=== PATIENT | female | born 1950 | race Caucasian/White ===

== ENCOUNTER 2017-12-08 05:42 | Outpatient (CLI) | payer MEDICARE, BC ==
[~2017-12-08] VITALS: Ht 152.4 cm; Wt 74.8 kg
[~2017-12-08 05:42] MED LIST: ASPI1TAB71 PO; BISO1TAB63 PO; CALC-17 PO; ESTR1TAB24 PO; FLUC200T5 PO; FLUO20CA42 PO; IBUP-1773 PO; IBUP200C92 PO; INSU200I SQ; INSU200I4 SQ; LORA10TA7 PO; LYSI500T13 PO; MEDR5TAB4 PO; NYST15CR TP; OLAN5TAB25 PO; PENI250T2 PO; POTA10CA43 PO; SITA100T PO; VILA40TA PO; [UNRECOGNIZED DRUG - OTHER] PO
[2017-12-08] MEDS ORDERED: VILA40TA PO (11:28)
[2017-12-08] MEDS ORDERED: INSU100I32 SQ (11:28)
[2017-12-08] MEDS ORDERED: DONE5TAB30 PO (11:28)
[2017-12-08] MEDS ORDERED: LAMO100T PO (11:28)
[2017-12-08] MEDS ORDERED: MULT-35 PO (11:28)
[2017-12-08] MEDS ORDERED: INSU100V16 SQ (11:28)
[2017-12-08] MEDS ORDERED: METF500T4 PO (11:28)
[2017-12-08] MEDS ORDERED: ESZO3TAB38 PO (11:29)
== END 2017-12-08 11:33 ==
LOC: PREOP 05:42
PROVIDERS: ATTEND Surgery
DX: Z01.818 Encounter for other preprocedural examination (principal); R19.8 Other specified symptoms and signs involving the digestive system and abdomen

== ENCOUNTER 2017-12-15 08:48 | Day surgery (SDC) | payer MEDICARE ==
[~2017-12-15] VITALS: Ht 152.4 cm; Wt 74.8 kg
[~2017-12-15 08:48] MED LIST changes: +DONE5TAB30 PO; +ESZO3TAB38 PO; +INSU100I32 SQ; +INSU100V16 SQ; +LAMO100T PO; +METF500T4 PO; +MULT-35 PO
[2017-12-15] MEDS ORDERED: NS IV 500 ML 500 ML ONE (08:55)
[2017-12-15] MEDS ORDERED: NS IV 500 ML 500 ML IV ONE (09:00)
[2017-12-15] MEDS ORDERED: fentaNYL INJECTION 100 MCG/2 ML AMP IVP PRN (09:00)
[2017-12-15 09:05] VITALS: BP 173/91
--- NOTE | 2017-12-15 10:31 | History & Physicial ---
History of Present Illness History of Present Illness Reason for visit/HPI to undergo colonoscopy in view of a positive Cologuard test Date of Admission 12/15/17 Date Seen by Provider: Dec 15, 2017 Time Seen by Provider: 10:29 I consulted on this patient on 12/15/17 10:28 Attending Physician Dipesh Baez MD Admitting Physician Stephanie Acosta DO Consult Allergies and Home Medications Allergies Coded Allergies: No Known Drug Allergies (Unverified , 12/08/17) Home Medications Donepezil HCl 5 Mg Tablet, 5 MG PO DAILY, (Reported) Eszopiclone 3 Mg Tablet, 3 MG PO HS, (Reported) Insulin Aspart 100 Unit/1 Ml Susp, 1,000 UNIT SQ SSI, (Reported) Insulin Degludec 100 Unit/1 Ml Insuln.pen, 20 UNIT SQ DAILY, (Reported) Lamotrigine 100 Mg Tablet, 100 MG PO BID, (Reported) Metformin HCl 500 Mg Tablet, 500 MG PO DAILY, (Reported) Multivitamin 1 Each Tablet, 1 EACH PO DAILY, (Reported) Vilazodone Hydrochloride 40 Mg Tablet, 40 MG PO DAILY, (Reported) Patient Home Medication List Home Medication List Reviewed: Yes Past Lenqxhv-Qxzjvs-Uelcmt Hx Patient Social History Marrital Status: Employed/Student: unemployed Alcohol Use: Denies Use Recreational Drug Use: No Smoking Status: Never a Smoker Recent Foreign Travel: No Contact w/other who traveled: No Recent Hopitalizations: No Recent Infectious Disease Expo: No Immunizations Up To Date Date of Influenza Vaccine: Jun 30, 2017 Seasonal Allergies Seasonal Allergies: No Surgeries Yes Eye Surgery, Orthopedic Respiratory No Currently Using CPAP: No Currently Using BIPAP: No Neurological Yes Dementia Reproductive System Hx Reproductive Disorders: No Sexually Transmitted Disease: No HIV/AIDS: No Female Reproductive Disorders: Denies Genitourinary UTI-Chronic Gastrointestinal No Endocrine Endocrine Disorders: Diabetes, Non-Insulin dep HEENT History of HEENT Disorders: Yes HEENT Disorders: Cataract Loss of Vision: Bilateral Hearing Impairment: Hard of Hearing, Bilateral Hearing Aide Psychosocial History of Psychiatric Problem: Yes Behavioral Health Disorders: Anxiety, Depression Integumentary Skin/Integumentary Disorders: Recent Skin Changes Blood Transfusions Adverse Reaction to a Blood Tr: No (N/A) Family Medical History Family Hx: Arthritis 19 MOTHER BREAST CA GRANDMOTHER BREAST CA GRANDMOTHER Diabetes mellitus 19 FATHER Parkinson's disease 19 MOTHER Constitutional: no symptoms reported EENTM: no symptoms reported Respiratory: no symptoms reported Cardiovascular: no symptoms reported Gastrointestinal: no symptoms reported Genitourinary: no symptoms reported Musculoskeletal: no symptoms reported Skin: no symptoms reported Psychiatric/Neurological: Anxiety Physical Exam Vital Signs Vital Signs - First Documented 12/15/17 09:05 Temp 98.2 Pulse 103 Resp 20 B/P (MAP) 173/91 (118) Pulse Ox 96 O2 Delivery Room Air Capillary Refill : General Appearance: No Apparent Distress Respiratory: Lungs Clear Cardiovascular: Regular Rate, Rhythm Gastrointestinal: Non Tender, Soft Rectal: Deferred Extremity: Normal Inspection Neurologic/Psychiatric: Alert, Oriented x3 Skin: Warm/Dry Assessment/Plan Assessment and Plan lady with a positive cologuard test. For colonoscopy Problems: Admission Diagnosis Admission Status: Other (Outpt Proc) DIPESH BAEZ MD Dec 15, 2017 10:31 am
--- NOTE | 2017-12-15 10:31 | Conscious Sedation/ASA ---
Conscious Sedation Pre-Proced Time Reviewed: 10:31 ASA Class: 2 Airway Mallampati Classification: ([place] appropriate class) I. II. III, IV Lungs Heart ASA score ASA 1: a normal healthy patient ASA 2: a patient with a mild systemic disease (mid diabetes, controlled hypertension, obesity ASA 3: a patient with a severe systemic disease that limits activity (angina , COPD, prior Myocardial infarction) ASA 4: a patient with an incapacitating disease that is a constant threat to life (CHF, renal failure) ASA 5: a moribund patient not expected to survive 24 hrs. (ruptured aneurysm) ASA 6: a declared brain patient whose organs are being harvested. For emergent operations, add the letter E after the classification Grade 2 Sedation Plan: Discussed options with patient/fam Note The patient is an appropriate candidate to undergo the planned procedure, sedation, and anesthesia. The patient immediately re-assessed prior to indication. DIPESH BAEZ MD Dec 15, 2017 10:31 am
[2017-12-15] MEDS ORDERED: MIDAZOLAM 2 MG/2 ML (VERSED) VIAL ONE ×3 (10:49)
[2017-12-15] MEDS ORDERED: fentaNYL INJECTION 100 MCG/2 ML AMP ONE (10:50)
[2017-12-15] MEDS: MIDAZOLAM 2 MG/2 ML (VERSED) VIAL IVP PRN ×2 (11:05→11:10)
[2017-12-15 11:45] VITALS: BP 131/70
--- NOTE | 2017-12-15 11:47 | Endo Procedure Record ---
Endo Procedure Report Date of Procedure Last Colonoscopy: Yes (2001) Dec 15, 2017 Surgeon (s) DIPESH BAEZ MD Post Procedure/Op Diagnosis 2 polyps, 2 mm each, adjacent to each other at the cecum Procedure Performed Colonoscopy to cecum Snare polypectomy 2 Description of Procedure Anesthesia Type: Conscious Sedation Specimen(s) collected/removed cecal polyps Description of the Procedure Indication for the procedure: This lady came in for colonoscopy, based on a positive Cologuard test. Informed consent was obtained after reviewing the procedure in detail. Description of the procedure: She was placed in left lateral decubitus position and her vital signs were monitored sedation was achieved using Versed and fentanyl. Examination of the perianal area revealed external hemorrhoids and large skin tags. Digital examination was unremarkable. The colonoscope was then introduced into the rectum and advanced all the way up to the cecum. The scope was then withdrawn slowly and the mucosa examined in a systematic fashion. Findings: 1. Very few sigmoid diverticula 2. 2 polyps, 2 mm each, adjacent to each other, at the cecum. These were snared and retrieved. They were sent as one single specimen She tolerated the procedure well and was taken back to the nursing area in a stable condition. Impression: Positive Cologuard test. 2 small cecal polyp excised. Recommend repeating in 3 years. Copies To: LUANA ROB XAVIER M MD Dec 15, 2017 11:47 am
--- NOTE | 2017-12-15 11:48 | Discharge Inst-Simple/Standard ---
Discharge Inst-Standard Discharge Medications New, Converted or Re-Newed RX: Other Patient Instructions/Follow Up Plan of Care/Instructions/FU: Repeat colonoscopy in 3 years Activity as Tolerated: Yes Discharge Diet: ADA Diet DIPESH BAEZ MD Dec 15, 2017 11:48 am
[2017-12-15 12:10] VITALS: BP 133/77
[2017-12-15 12:15] VITALS: BP 133/77
== END 2017-12-15 12:30 | disposition home or self-care (01) ==
LOC: ENDO 08:48
PROVIDERS: ATTEND Surgery
DX: D12.0 Benign neoplasm of cecum (principal); K57.30 Diverticulosis of large intestine without perforation or abscess without bleeding; E11.9 Type 2 diabetes mellitus without complications; F32.9 Major depressive disorder, single episode, unspecified; F41.9 Anxiety disorder, unspecified; Z79.4 Long term (current) use of insulin; Z79.899 Other long term (current) drug therapy
CPT/HCPCS: 82962

== ENCOUNTER → 2018-06-11 | Outpatient (CLI) | payer MEDICARE ==
[~2018-06-11] MED LIST changes: -ESZO3TAB38 PO; +ESZO3TAB39 PO; +METF-397 PO; -METF500T4 PO
--- NOTE | 2018-06-12 19:54 | Diagnostic Imaging Report ---
EXAMINATION: Bilateral screening mammogram. INDICATION: Screening. The current study was also evaluated with a Computer Aided Detection (CAD) system. 3-D tomosynthesis was also performed and reviewed. COMPARISON: This study was compared to the prior exam of 06/15/2013. At this time, there are no current complaints. FINDINGS: The fibroglandular tissue in both breasts is heterogeneously dense. This does limit the sensitivity of this exam. In the five-year interval since the prior study, a few benign-appearing calcifications have developed in both breasts, particularly the left breast. There is no primary or secondary sign of malignancy noted, however. IMPRESSION: 1. There is no evidence of malignancy. 2. The patient should have her annual bilateral screening mammogram on schedule in May of 2019. ACR BI-RADS Category 1: Negative. Result letter will be mailed to the patient. Note: At least 10% of breast cancer is not imaged by mammography. Dictated by: Dictated on workstation # [id number]
== END ==
LOC: RAD 09:38
PROVIDERS: ATTEND Nurse Practitioner Community Health
DX: Z12.31 Encounter for screening mammogram for malignant neoplasm of breast (principal)
CPT/HCPCS: 77067

== ENCOUNTER 2019-05-29 07:50 | Emergency (ER) | payer MEDICARE ==
[~2019-05-29] VITALS: Ht 152.4 cm; Wt 78.1 kg
--- NOTE | 2019-05-29 08:14 | ED Lower Extremity ---
General Stated Complaint: FALL - R KNEE PAIN Source: patient (DIFFICULT HISTORIAN), spouse History of Present Illness Date Seen by Provider: May 29, 2019 Time Seen by Provider: 07:56 Initial Comments PT ARRIVES VIA POV, THEN NEEDS WHEELCHAIR INTO ER PT STATES SHE TRIPPED AND FELL SHE WAS GOING DOWN STEPS AT FOOTBALL GAME LAST NIGHT, AND LANDED ON RIGHT KNEE ON CONCRETE STEP STATES "SHE DIDN'T GO DOWN ON IT REAL HARD OR REAL FAST" AND PT HAS BEEN ABLE TO WALK ON IT C/O CONTINUED PAIN TO KNEE TODAY NO PRIOR INJURIES OR PROBLEMS OR SURGERIES ON THIS KNEE TOOK 1 ANACIN JUST PRIOR TO ARRIVAL, OTHERWISE HAS NOT TAKEN ANYTHING FOR IT, NOR APPLIED ICE, ETC. NO OTHER INJURIES PCP: [facility] Allergies and Home Medications Allergies Coded Allergies: No Known Drug Allergies (Unverified , 12/08/17) Home Medications Donepezil HCl 5 Mg Tablet, 5 MG PO DAILY, (Reported) Eszopiclone 3 Mg Tablet, 3 MG PO HS, (Reported) Insulin Aspart 100 Unit/1 Ml Susp, 1,000 UNIT SQ SSI, (Reported) Insulin Degludec 100 Unit/1 Ml Insuln.pen, 20 UNIT SQ DAILY, (Reported) Lamotrigine 100 Mg Tablet, 100 MG PO BID, (Reported) Metformin HCl 500 Mg Tablet, 500 MG PO DAILY, (Reported) Multivitamin 1 Each Tablet, 1 EACH PO DAILY, (Reported) Vilazodone Hydrochloride 40 Mg Tablet, 40 MG PO DAILY, (Reported) Review of Systems Constitutional: no symptoms reported Musculoskeletal: see HPI Skin: no symptoms reported Psychiatric/Neurological: No Symptoms Reported Past Wwhewym-Fszgwq-Ybuqgy Hx Patient Social History Recent Foreign Travel: No Contact w/Someone Who Travel: No Recent Hopitalizations: No Immunizations Up To Date Date of Influenza Vaccine: Jun 30, 2017 Seasonal Allergies Seasonal Allergies: No Past Medical History Surgeries: Yes (CATARACTS) Eye Surgery, Orthopedic Respiratory: Yes Pneumonia Currently Using CPAP: No Currently Using BIPAP: No Cardiac: Yes Hypertension Neurological: Yes Dementia Reproductive Disorders: No Female Reproductive Disorders: Denies Sexually Transmitted Disease: No HIV/AIDS: No Genitourinary: Yes UTI-Chronic Gastrointestinal: No Musculoskeletal: Yes Arthritis Endocrine: Yes Diabetes, Insulin dep HEENT: Yes Cataract Loss of Vision: Bilateral Hearing Impairment: Hard of Hearing, Bilateral Hearing Aide Psychosocial: Yes Anxiety, Depression Recent Skin Changes Adverse Reaction/Blood Tranf: No (N/A) Family Medical History Arthritis 19 MOTHER BREAST CA GRANDMOTHER BREAST CA GRANDMOTHER Diabetes mellitus 19 FATHER Parkinson's disease 19 MOTHER Physical Exam Vital Signs Vital Signs - First Documented 05/29/19 07:57 Temp 37.1 Pulse 100 Resp 18 B/P (MAP) 164/98 (120) Pulse Ox 96 Capillary Refill : Height, Weight, BMI Height: 5'0.00" Weight: 165lbs. 0.0oz. [id number]; 32.2 BMI Method: General Appearance: WD/WN, no apparent distress, other (PT ABLE TO GET OUT OF WHEELCHAIR AND TRANSFER TO ER CART, VERY SLOWLY, WITH 1 PERSON ASSIST. ) Progress/Results/Core Measures Results/Orders My Orders Orders - REGI FALCON DO Knee, Right, 3 Views (05/29/19 08:03) Ct Extremity Lower Right Wo (05/29/19 09:01) Bg Bandage (05/29/19 10:00) Flexion Limit Knee (05/29/19 10:00) Hydrocodone/Apap 5/325 Tablet (Lortab 5 (05/29/19 10:00) Vital Signs/I&O 05/29/19 07:57 Temp 37.1 Pulse 100 Resp 18 B/P (MAP) 164/98 (120) Pulse Ox 96 Departure Impression Primary Impression: Fracture of right tibial plateau Disposition: 01 HOME, SELF-CARE Condition: Stable Departure-Patient Inst. Referrals: [facility] (PCP) Primary Care Physician JESSE THAKKAR (Family) Primary Care Physician KARI PERKINS MD Patient Instructions: Knee Immobilizer (DC), Tibial Plateau Fracture (DC) Add. Discharge Instructions: BG WRAP AND KNEE IMMOBILIZER AND WHEELCHAIR AT ALL TIMES NO WEIGHT BEARING ICE TO AREA AT 20 MINUTE INTERVALS FOLLOW UP WITH DR. PERKINS NEXT WEEK FOR FURTHER CARE Scripts Hydrocodone Bit/Acetaminophen (Hydrocodone/Acetaminophen 5/325mg Tablet) 1 Tab Tab 1 EACH PO Q4H PRN for PAIN-MODERATE MDD 10 for 3 Days, #20 TAB Prov: REGI FALCON DO 05/29/19 REGI FALCON DO May 29, 2019 08:14
--- NOTE | 2019-05-29 08:52 | Diagnostic Imaging Report ---
INDICATION: Knee pain after fall. COMPARISON: None available. TECHNIQUE: 3 views of the right knee were obtained. FINDINGS: There is an acute, mildly impacted fracture of the lateral tibial plateau. This involves the posterior one third to one half of the articular surface with the depression measuring approximately 4 mm. No split fracture to the metaphysis of the proximal tibia. No distal femoral fracture. Patella appears intact. Small knee joint effusion. IMPRESSION: Acute, mildly impacted lateral tibial plateau fracture. Dictated by: Dictated on workstation # [id number]
--- NOTE | 2019-05-29 09:30 | Diagnostic Imaging Report ---
PROCEDURE: CT right lower extremity without contrast. TECHNIQUE: Axially acquired CT was obtained through the right lower extremity without intravenous contrast. Coronal and sagittal reformations were also performed. Auto Exposure Controls were utilized during the CT exam to meet ALARA standards for radiation dose reduction. INDICATION: Right knee pain. Further evaluation of lateral tibial plateau fracture. COMPARISON: Radiographs from earlier same day. FINDINGS: There is an acute, minimally comminuted fracture involving the posterior one quarter of the lateral tibial plateau articular surface. There is approximately 3 mm of articular surface depression of the dominant fracture fragment. No fracture line extending into the metaphysis. No intercondylar fracture or fracture of the medial tibial plateau. Patella is intact. No fracture of the fibula. Distal femoral condyles are intact. Mild to moderate tricompartmental degenerative changes are most advanced in the lateral compartment. Small lipohemarthrosis compatible with intra-articular fracture. IMPRESSION: 1. Acute, minimally depressed fracture of the lateral tibial plateau (Schatzker type III). Dictated by: Dictated on workstation # [id number]
[2019-05-29] MEDS ORDERED: HYDROcodone/APAP 5 MG/325 MG (LORTAB) TAB PO ONE (10:00)
[2019-05-29] MEDS ORDERED: ACHD5005 PO (10:04)
[2019-05-29 10:17] VITALS: BP 151/82
== END 2019-05-29 10:17 | disposition home or self-care (01) ==
LOC: EDUNIT# 07:50 → ER 07:52
DX: S82.141A Displaced bicondylar fracture of right tibia, initial encounter for closed fracture (principal); I10 Essential (primary) hypertension; E11.9 Type 2 diabetes mellitus without complications; F03.90 Unspecified dementia, unspecified severity, without behavioral disturbance, psychotic disturbance, mood disturbance, and anxiety; F41.9 Anxiety disorder, unspecified; F32.9 Major depressive disorder, single episode, unspecified; Z87.440 Personal history of urinary (tract) infections; Z79.4 Long term (current) use of insulin; Z80.0 Family history of malignant neoplasm of digestive organs; W10.9XXA Fall (on) (from) unspecified stairs and steps, initial encounter
CPT/HCPCS: 73562; 73700

== ENCOUNTER 2020-01-20 03:02 | Emergency (ER) | payer MEDICARE ==
[~2020-01-20] VITALS: Ht 155 cm; Wt 77.2 kg
[~2020-01-20 03:02] MED LIST changes: +ACHD5005 PO; -LAMO100T PO; +LAMO100T5 PO
--- OUTSIDE RECORDS SUMMARY | 2020-01-20 03:10 | XMS REPORT ---
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 Name Role Phone NIHARIKA GORE Unavailable Unavailable BIJAN, JESSE Unavailable Unavailable ROSA MARIA BEJARANO Unavailable Unavailable MARIS MACHADO Unavailable Unavailable JULIUS EPSTEIN Unavailable JULIUS EPSTEIN Unavailable TAM SALAZAR Unavailable BIJAN, JESSE Unavailable TAM SALAZAR Unavailable BIJAN, JESSE Unavailable BIJAN, JESSE Unavailable TAM SALAZAR Unavailable TAM SALAZAR Unavailable KATIE, DAWNY Unavailable KATIE, DAWNY Unavailable KATIE, DAWNY Unavailable TAM SALAZAR Unavailable KATIE, DAWNY Unavailable KATIE, DAWNY Unavailable BIJAN, JESSE Unavailable BIJAN, JESSE Unavailable TAM SALAZAR Unavailable SEGUNDO WISDOM Unavailable SEGUNDO WISDOM Unavailable BIJAN, JESSE Unavailable KATIE, DAWNY Unavailable TAM SALAZAR Unavailable DENNIS Wilson Unavailable TAM SALAZAR ANN Unavailable KATIE, DAWNY Unavailable BIJAN, JESSE Unavailable TAM SALAZAR ANN Unavailable TAM SALAZAR ANN Unavailable TAM SALAZAR ANN Unavailable BIJAN, JESSE Unavailable KATIE, DAWNY Unavailable TAM SALAZAR ANN Unavailable KATIE, DAWNY Unavailable TAM SALAZAR ANN Unavailable KATIE, DAWNY Unavailable TAM SALAZAR ANN Unavailable BIJAN, JESSE Unavailable BIJAN, JESSE Unavailable TAM SALAZAR ANN Unavailable TAM SALAZAR ANN Unavailable KATIE, DAWNY Unavailable BIJAN, JESSE Unavailable BIJAN, JESSE Unavailable BIJAN, JESSE Unavailable MONTESINOS, KATHERINE Unavailable MONTESINOS, KATHERINE Unavailable BIJAN, JESSE Unavailable BIJAN, JESSE S Unavailable Unavailable [facility] PCP [phone] TERRIE DO, KATHERINE K Unavailable Unavailable Unavailable Unavailable Unavailable Unavailable Unavailable Unavailable Allergies The data below is from unstructured sources Substance Reaction Event Type N.K.D.A. Info Not Available Non Drug Allergy Allergen Type Severity Reaction Status Last Updated No Known Drug Allergies Active 10/12/14 No known allergies. Medications Current Medications Medication Ingredient Drug Dose Dates Status Sig Sig Care Class(es) (Normalized) (Original) Provid er atorvastati atorvastati HMG-CoA 40 mg 10-12-20 Active no At orvastatin no n 40 mg n Reductase 18 information Calcium 40 na me oral tablet Translation Inhibitor MG Orally (3 s: [ Once a day 1 sources.) Atorvastati tablet 24h n Calcium Jun, 40 MG] 90 days Active cholecalcif cholecalcif Vitamin D 199906-26-20 Active no Vitamin D3 no di 2000 di [IU] 18 information 2000 UNIT name unt oral Translation Orally Once capsule (3 s: [ a day 1 sources.) Vitamin D3 capsule 24h 2000 UNIT] Jun, 90 days Active no Glucocard no 07-08-20 Active no Glucocard no information Expression information 18 information Express ion name (2 Monitor Monitor sources.) w/Device w/Device as Translation directed 24 s: [ Jun, 2018 Glucocard Active Expression Monitor w/Device] no Glucocard no 07-08-20 Active no Glucocard no information Expression information 18 information Express ion name (2 Test - Test - In sources.) Translation Vitro 2 s: [ times a day Glucocard as directed Expression 12h Jun, Test -] 2017 Active raNITIdine raNITIdine Histamine-2 150 mg 07-08-20 Active no Ranitidine no 150 mg oral Translation Receptor 18 information HCl 150 M G name capsule (2 s: [ Antagonist Orally twice sources.) Ranitidine a day 1 HCl 150 MG] capsule 12h Jun, 30 day(s) Active no ReliOn no Active no ReliOn Prime no information Prime Test information information Test - In nam e (3 - Vitro 2 sources.) Translation times a day s: [ ReliOn test blood Prime Test sugar 12h 50 -] days Active Completed/Discontinued Medications Medication Ingredient Drug Dose Dates Status Sig Sig Care Class(es) (Normalized) (Original) Provid er {32 Acetaminoph Uncompetiti 01-31-20 Complete no Dm/Pe/Ac etam (no (Acetaminop en / ve 16 d information inophen/Doxy phone) hen 325 MG Dextrometho N-methyl-D- clarissa (Eq / rphan / aspartate Daytime-Nigh Dextrometho Doxylamine Receptor ttime rphan / Antagonist, Cold-Flu) 1 Hydrobromid Phenylephri Sigma-1 Each e 10 (1 ne Agonist, Cap.seq, 1 source.) alpha-1 Each Oral As Adrenergic Needed Agonist Discontinued no Acetaminoph Opioid 05-29-20 Complete take 1 Acetaminophe Katherine K information en / Agonist 19 - d tablet by n/Hydrocodon Terrie (1 source.) HYDROcodone 06-01-20 mouth every e Bitart (no 19 four hours (Hydrocodone phone) as needed /Acetaminoph for pain en 5/325MG Tablet) 1 Tab Tab 1 Each ORAL Every 4HRS as needed for Pain-Moderat e 3 Days 20 Tab 05/29/19 no Calcium/Mag no 01-31-20 Complete no Calcium/Magn (no information nesium/Zinc information 16 d information es ium/Zinc phone) (1 source.) (Calcium/Ma (Calcium/Mag gnesium/Zin nesium/Zinc c Tab) 1 Tab) 1 Each Each Tablet, 2 Tablet, 2 Each Oral Each Oral Daily Discontinued no Multivitami no Complete take 1 Multivitamin (n o information n (Daily information d tablet by (Daily phone) (1 source.) Multiple mouth once Multiple Vitamin) 1 daily, then Vitamin) 1 Each Tablet take 1 Each Tablet tablet by 1 Each ORAL mouth Daily Problems Active Problems Problem Normalized Date Last Normalized Normalized Provider Fa cility Classification Problem(s) Recorded Problem Problem Sta tus Duration Anxiety Anxiety Chronic Active KATHERINE FALCON , DO [facility] Via disorders (10 disorder, Madisyn sources.) unspecified Hospital [facility] (17782) Other and Benign Episodic Active DIPESH BAEZ Not Avai lable 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 (4 sources.) Disorders of Chronic Chronic Active KATHERINE [facility] teeth and jaw periodontitis, [address] [facility] (3 sources.) unspecified of [facility] Translations: [place] (31918) [ - Periodontitis K05.30] Disorders of Dental caries, Episodic Active KATHERINE MONTESINOS [facility] teeth and jaw unspecified [address] [facility] (3 sources.) Translations: of [facility] [ - Caries [place] (37709) K02.9] Diverticulosis Diverticulosis Chronic Active DIPESH MILAN S Not Available and of MD ever (22394) diverticulitis intestine (5 sources.) without perforation or abscess without bleeding Esophageal Gastro-esophag Chronic Active KATHERINE MONTESINOS Commun ity disorders (6 eal reflux [address] [facility] Center sources.) disease of [facility] without [place] (06747) esophagitis Translations: [ Gastroesophage al reflux disease without esophagitis, - Gastroesophage al reflux disease without esophagitis K21.9] Unclassified Long-term no information Active KATHERINE YAMEL [facility] (3 sources.) [place] [address] [facility] insulin of [facility] Translations: [place] (42059) [ [facility] current use of insulin] Other Other long Episodic Active DIPESH BAEZ Not Av ailable aftercare (5 term (current) , (38289) sources.) drug therapy Other Other Episodic Active no name Not Available gastrointestin specified (10380) al disorders symptoms and (3 sources.) signs involving the digestive system and abdomen NEGATED Polyp of Episodic Active no name no informatio n no corpus uteri information (4 sources.) NEGATED Postmenopausal Chronic Active no name no info rmation no bleeding information (4 Translations: sources.) [ ATROPHIC VAGINITIS] Prolapse of Rectocele Chronic Active no name no informa tion female genital organs (2 sources.) Other ear and Sensorineural Chronic Active [facility] sense organ hearing loss, 11305 [facility] Center disorders (20 bilateral of [facility] sources.) Translations: [place] (30939) [ - Sensorineural hearing loss (SNHL) of both ears H90.3, - Sensorineural hearing loss (SNHL) of both ears H90.3] Abdominal pain Unspecified Episodic Active [facility] (8 sources.) abdominal pain 41035 [facility] Translations: of [facility] [ - Abdominal [place] (92746) pain R10.9] Nutritional Vitamin D [facility] [address] [facility] (13 sources.) Translations: of [facility] [ Vitamin D [place] (81022) deficiency, - Vitamin D deficiency E55.9] Unclassified no information no information Active [facility] [place] [facility] (2 sources.) [facility] [place] [address] [facility] ([address]144) Past or Other Problems Problem Normalized Date Last Normalized Normalized Provider Fa cility Classification Problem(s) Recorded Problem Problem Sta tus Duration Fracture of Displaced Episodic Completed DO ARPITA AYERS V ia lower limb (2 bicondylar Madisyn sources.) fracture of Hospital - right tibia, [place] initial (45767) encounter for closed fracture External cause Fall (on) Episodic Completed KATHERINE FALCON DO [facility] Via codes: Fall (2 (from) Madisyn sources.) unspecified Hospital - stairs and [place] steps, initial (18580) encounter Residual Family history Episodic Completed KATHERINE FALCON DO [facility] Via codes; of malignant [facility] unclassified neoplasm of Hospital - (2 sources.) digestive [place] organs (98192) Other Pain in right Episodic Completed KATHERINE FALCON DO [facility] Via non-traumatic knee [facility] joint Hospital - disorders (2 [place] sources.) (75641) Other and Polyp of colon Episodic Completed no name Not Ann-Marie ilable unspecified (74361) benign neoplasm (1 source.) Procedures Procedure Normalized Procedure Procedure Result Performer Facility Date 07-08-2018 Billing Notes on claim no information no name [facility] (78210) 06-02-2018 Collection venous no information no name [facility] blood venipuncture [facility] (59056) 05-29-2019 CT of lower limb no information KATHERINEJoselo FALCON [facility] (83806) 07-08-2018 [facility] visit, estab pt no information no name [facility] (46545) 06-08-2018 [facility] visit, estab pt no information no name [facility] (86849) 04-13-2018 [facility] visit, estab pt no information no name [facility] (64533) 02-25-2018 [facility] visit, estab pt no information no name [facility] (99129) 06-05-2018 [facility] visit, estab no information no name [facility] (58961) 05-01-2018 [facility] visit, estab no information no name [facility] (91689) 03-04-2018 [facility] visit, estab no information no name [facility] pt [facility] (31801) 01-30-2018 [facility] visit, estab no information no name [facility] pt [facility] (57130) 07-08-2018 Gluc bld gluc mntr dev no information no name [facility] cleared fda spec home [facility] (51529) 06-02-2018 Hemoglobin no information no name [facility] glycosylated a1c [facility] (03059) 04-13-2018 Hemoglobin no information no name [facility] glycosylated a1c [facility] (87455) 06-02-2018 LAB NOT BILLED BY no information no name [facility] (76257) 07-09-2018 Periodontal maint no information no name [facility] procedures [facility] (73042) 06-05-2018 Psychotherapy no information no name [facility] w/patient 30 minutes [facility] (14010) 05-01-2018 Psychotherapy no information no name [facility] w/patient 30 minutes [facility] (82431) 03-04-2018 Psychotherapy no information no name [facility] w/patient 30 minutes [facility] (05406) 01-30-2018 Psychotherapy no information no name [facility] w/patient 30 minutes [facility] (49060) 07-08-2018 Screening of a patient no information no name [facility] (58246) 06-08-2018 Urnls dip stick/tablet no information no name [facility] rgnt auto w/o [facility] (24595) 04-13-2018 Urnls dip stick/tablet no information no name [facility] rgnt auto w/o [facility] (78598) 05-29-2019 X-ray of right knee no information KATHERINE FALCON [facility] (82442) Immunizations Normalized Immunization Date Notes Care Provider Facili ty Immunization Vaccination no information [facility] [place] Via Translations: [ [address] [facility] vaccine] (86199) Results Test Name Value Interpretation Reference Range Date Time Fa cility (Normalized) (Normalized) (Medline Reference) ua w/culture if indicated (in house) on null Glucose Test Negative (no code) [facility] strip mass conc Center of (U) [facility] (07410) UA W/CULTURE IF 175433 (no code) [facility] INDICATED (IN Center of HOUSE) [facility] (96531) UA W/CULTURE IF 12/2018 (no code) [facility] INDICATED (IN Center of HOUSE) [facility] (39037) UA W/CULTURE IF clear (no code) [facility] INDICATED (IN Center of HOUSE) [facility] (31985) UA W/CULTURE IF yellow (no code) [facility] INDICATED (IN Center of HOUSE) [facility] (09492) UA W/CULTURE IF 1.015 (no code) [facility] INDICATED (IN Center of HOUSE) [facility] (17631) UA W/CULTURE IF 5.5 (no code) [facility] INDICATED (IN Center of HOUSE) [facility] (81166) UA W/CULTURE IF 0.2 E.U (no code) [facility] INDICATED (IN Center of HOUSE) [facility] (85255) UA W/CULTURE IF TRACE (no code) [facility] INDICATED (IN Center of HOUSE) [facility] (55661) ua long dip (in house) on null UA LONG DIP (IN 01/12/2019 (no code) Community [facility] HOUSE) [facility] (66374) UA LONG DIP (IN 1.020 (no code) Community [facility] HOUSE) [facility] (84375) UA LONG DIP (IN 5.0 (no code) Community [facility] HOUSE) [facility] (84587) UA LONG DIP (IN 99593P (no code) [facility] HOUSE) [facility] (09536) UA LONG DIP (IN 08/2018 (no code) [facility] HOUSE) [facility] (69150) mammogram, bilateral screening on null NEGATED: no information (no code) [facility] Highlighted row Center of Laboratory [facility] studies (set) (38055) glucose fingerstick (in house) on null GLUCOSE 211 (no code) [facility] FINGERSTICK (IN Center of HOUSE) [facility] (53778) GLUCOSE [id number] (no code) [facility] FINGERSTICK (IN Center of HOUSE) [facility] (77941) GLUCOSE 12/18/2018 (no code) [facility] FINGERSTICK (IN Center of HOUSE) [facility] (28814) a1c (in house) on null Hemoglobin 7.7 % (no code) 0 - 5.7 % [facility] A1c/Hemoglobin.t Center of otal mass [facility] fraction (Bld) (27094) A1C (IN HOUSE) (no code) [facility] (64900) A1C (IN HOUSE) 0856 (no code) [facility] (72261) not yet categorized on 2019-09-29 Exp date 04/2021 (no code) [facility] (42035) Lot 5.7~7.0~0552 (no code) [facility] (07648) other on 2019-01-28 LAMOTRIGINE 5.0 (no code) [facility] (95582) urinalysis on 2019-01-13 Color (U) 07/03~clear~yell (no code) [facility] Hea lt ow [facility] (46509) other on 2019-01-13 Calcidiol 38 ng/mL (N) 20 - 50 ng/mL [facility] [Mass/Vol] [facility] (58031) Cholesterol non 117 (N) [facility] HDL [Mass/Vol] [facility] (95959) Cholesterol.tota 4.2 (N) [facility] in [facility] HDL [Mass ratio] [facility] (10604) Control <30~+ (no code) [facility] (60174) CRE 10~300 (no code) [facility] (54404) Exp date 06/2020 (no code) [facility] (68660) Lot 7.0~7.7~0941 (no code) [facility] (79224) Lot # [id number] (no code) [facility] (39156) MICROALBUMIN normal (no code) [facility] (05796) cardiac on 2019-01-13 Cholesterol 154 mg/dL (N) 180 - 200 mg/dL Community [facility] [Mass/Vol] [facility] (75243) Cholesterol in 37 mg/dL (L) [facility] HDL [Mass/Vol] [facility] (69315) Cholesterol in 91 (N) [facility] LDL [Mass/Vol] [facility] (34061) Triglyceride 159 mg/dL (H) 0 - 150 mg/dL [facility] [Mass/Vol] [facility] (00042) urinalysis on 2018-06-08 Protein mass Negative (no code) 0 - 20 mg/dL [facility] conc (U) [facility] (54849) other on 2018-06-08 BLO Negative (no code) [facility] (48383) KET 01/12/2019~clear (no code) [facility] ~yellow~none~neg [facility] ative~negative~n [facility] egative (08173) Lot # [id number] (no code) [facility] (29587) SG 1.020 (no code) [facility] (26373) URO 0.2 (no code) [facility] (38026) hematology on 2018-06-08 pH (Bld) 5.0 [pH] (no code) 7.38 - 7.42 [pH] [facility] (75172) other on 2018-04-13 BLO Negative (no code) [facility] (89110) Exp date 12/2018 (no code) [facility] (28590) Exp date (no code) [facility] (85886) KET 12/2018~clear~ye (no code) [facility] llow~none~NEGATI [facility] VE~NEGATIVE~NEGA [facility] TIVE (08237) Lot 7.7~6.6~0856 (no code) [facility] (54084) Lot # [id number] (no code) [facility] (09034) SG 1.015 (no code) [facility] (91575) hematology on 2018-04-13 pH of blood 5.5 [pH] (no code) 7.38 - 7.42 [pH] [facility] (07162) urinalysis on 2017-11-19 Protein mass Negative (no code) 0 - 20 mg/dL Community ealth conc (U) [facility] (36287) other on 2017-11-19 BLO Negative (no code) [facility] (02926) Exp date 07/2019 (no code) [facility] (62894) KET 06/2018~clear~ye (no code) [facility] ve~negative~nega [facility] tive (66465) Lot 6.6~6.4~0812 (no code) [facility] (24412) Lot # [id number] (no code) [facility] (16712) SG 1.025 (no code) [facility] (48363) URO 0.2 (no code) [facility] (15983) hematology on 2017-11-19 pH (Bld) 5.0 [pH] (no code) 7.38 - 7.42 [pH] [facility] (97008) urinalysis on 2017-09-18 Bacteria SEE NOTE (A) [facility] identified Cx [facility] Nom (U) [facility] (22894) other on 2017-05-22 Cholesterol in 33 mg/dL (no code) 05-22-2017 Not Availab le VLDL [Mass/Vol] 09:05-0400 (69304) cardiac on 2017-05-22 Cholesterol 224 mg/dL (H) 180 - 200 mg/dL 05-22-2017 Not Available [Mass/Vol] 09:05-0400 (14219) Cholesterol in 39 mg/dL (L) 05-22-2017 Not Availab le HDL [Mass/Vol] 09:05-0400 (37814) Cholesterol in 152 mg/dL (H) 0 - 100 mg/dL 05-22-2017 Not Available LDL [Mass/Vol] 09:040 (44161) Triglyceride 166 mg/dL (H) 0 - 150 mg/dL 05-22-2017 Not A vailable [Mass/Vol] :040 (58782) Vital Signs Vital Sign Value Interpretation Reference Date Time Care [facility] ider Facility (Normalized) (Normalized) Range BMI (Body Mass 31.91 kg/m2 (no code) 15 - 25 kg/m2 07-08-2018 B [facility] Community Index) 17:00-0400 88720 [facility] (17733) BMI (Body Mass 32.32 kg/m2 (no code) 15 - 25 kg/m2 06-08-2018 B [facility] Community Index) 10:40-0400 40590 [facility] (49397) BMI (Body Mass 31.99 kg/m2 (no code) 15 - 25 kg/m2 04-13-2018 B [facility] Community Index) 11:20-0400 95616 [facility] (33190) BMI (Body Mass 31.54 kg/m2 (no code) 15 - 25 kg/m2 02-25-2018 D [facility] Community Index) 16:20-0400 19240 [facility] (64466) Body 98.1 [degF] (no code) 97.8 - 99.0 07-08-[address] [facility] Temperature [degF] 17:00-0400 05092 [facility] (16483) Body 98.4 [degF] (no code) 97.8 - 99.0 06-08-[address] [facility] Temperature [degF] 10:40-0400 91753 [facility] (37352) Body 98.4 [degF] (no code) 97.8 - 99.0 04-13-[address] [facility] Temperature [degF] 11:200400 10706 [facility] (34419) Height 152.4 cm (no code) cm 07-08-2018 [facility] 17:00-0400 10248 [facility] (77443) Height 152.4 cm (no code) cm 06-08-2018 [facility] 10:40-0400 13762 [facility] (30278) Height 152.4 cm (no code) cm 04-13-2018 [facility] 11:200400 55934 [facility] (96569) Height 152.4 cm (no code) cm 02-25-2018 [facility] 16:200400 00560 [facility] (06145) Pulse Oximetry 94 % (no code) 95 - 100 % 04-13-2018 [facility] 11:200400 26130 [facility] (83206) Weight 74.12 kg (no code) kg 07-08-2018 [facility] 17:00-0400 80406 [facility] (20407) Weight 75.07 kg (no code) kg 06-08-2018 [facility] 10:400400 23742 [facility] (34539) Weight 74.3 kg (no code) kg 04-13-2018 [facility] 11:200400 74079 [facility] (69508) Weight 73.26 kg (no code) kg 02-25-2018 [facility] 16:200400 07897 [facility] (02091) Interventions No Information Plan of Treatment Normalized Care Care Detail Care Activity Date Care Provider F acility Activity () [facility] 07-10-2018 JAXSON WILSON [address]327 [facility] Behavioral Health [facility] F/u 30 min [place] (00979) () [facility] 08-14-2018 KATHERINE MONTESINOS 98011 [facility] Behavioral [facility] F/u 30 min [place] (55896) ([facility]) Chronic Health [facility] 07-08-2018 JAXSON Boyce 38181 [facility] Maintenance [facility] [place] (45241) (PSY-FU-20) no information 08-26-2018 JAXSON WILSON 43581 [facility] Psychiatry F/U 20 Center [facility] (70633) Goals No Information Social History No Information Functional Status The data below is from unstructured sources Query Response Date Girish rded Patient Orientation Person Place Time Situation Eyes Open February 03, 2016 5:29pm Comprehension Ability Understands Co ncepts February 03, 2016 9:00am No functional status information available. Mental Status No Information Encounters Encounter Normalized Encounter Encounter Diagnosis Care Provi jesusita Organization Date Type 07-10-2018 () Behavioral Bipolar disorder, TAM BARILLAS (no [facility] Health F/u 30 min unspecified phone) (no phone) 06-05-2018 () Behavioral Bipolar disorder, TAM BARILLAS (no [facility] Health F/u 30 min unspecified phone) (no phone) 07-08-2018 ([facility]) Chronic Health Type 2 diabetes JESSE THAKKAR (no [facility] Maintenance mellitus with phone) (no phone) unspecified complications 07-09-2018 (D-HYG/13/A) Hygiene Dental caries, KATHERINE MONTESINOS (no p cameron) [facility] 14 and above unspecified DENTAL (no phone) 07-08-2018 (D-INT DENT) DENTAL Encounter for dental KATHERINE MONTESINOS (no phone) [facility] INTEGRATED VISIT examination and (no phone) cleaning without abnormal findings 08-26-2018 ([id number]-[id number]) Psychiatry no information RANI GROVE N (no [facility] F/U 20 min phone) (no phone) 06-08-2018 (SD) Same Day Unspecified abdominal JESSE THAKKAR (no [facility] pain phone) (no phone) 04-15-2018 [facility] Type 2 diabetes JESSE Purcell (no [facility] mellitus with diabetic phone) (no phone) dermatitis 07-09-2018 Comprehensve oral no information no name no or ganization name evaluation 06-02-2018 Consultation for Bipolar disorder, JAXSON WILSON ( no [facility] laboratory medicine unspecified phone) (no phone) 05-29-2019 Emergency department no information KATHERINE reilly no organization name - patient visit Phone: 05-29-2019 05-29-2019 Emergency department no information no name no organization name - patient visit 05-29-2019 06-11-2018 Patient encounter no information no name no or ganization name 06-08-2018 Patient encounter no information no name no or ganization name 06-02-2018 Patient encounter no information no name no or ganization name 04-13-2018 Patient encounter no information no name no or ganization name 03-04-2018 Patient encounter no information no name no or ganization name 02-25-2018 Patient encounter no information no name no or ganization name 01-30-2018 Patient encounter no information no name no or ganization name 12-26-2017 Patient encounter no information no name no or ganization name 12-24-2017 Patient encounter no information no name no or ganization name 12-15-2017 Patient encounter no information no name no or ganization name - 12-15-2017 12-08-2017 Patient encounter no information no name no or ganization name - 12-08-2017 11-28-2017 Patient encounter no information no name no or ganization name 11-26-2017 Patient encounter no information no name no or ganization name 11-19-2017 Patient encounter no information no name no or ganization name 10-31-2017 Patient encounter no information no name no or ganization name 10-10-2017 Patient encounter no information no name no or ganization name 10-01-2017 Patient encounter no information no name no or ganization name 09-18-2017 Patient encounter no information no name no or ganization name 08-13-2017 Patient encounter no information no name no or ganization name 10-18-2014 Patient encounter no information no name no or ganization name - 10-18-2014 Patient encounter no information no name no organizat ion name 11-17-2019 Patient encounter no information JESSE THAKKAR ( no [facility] procedure phone) [facility] (no phone) 09-29-2019 Patient encounter no information no name no or ganization name procedure 09-01-2019 Patient encounter no information no name no or ganization name procedure 05-21-2019 Patient encounter no information no name no or ganization name procedure 04-30-2019 Patient encounter no information no name no or ganization name procedure 04-30-2019 Patient encounter no information no name no or ganization name procedure 01-29-2019 Patient encounter no information no name no or ganization name procedure 01-28-2019 Patient encounter no information no name no or ganization name procedure 01-13-2019 Patient encounter no information no name no or ganization name procedure 12-15-2017 Patient encounter no information no name no or ganization name procedure 06-26-2018 Telephone encounter Mixed hyperlipidemia JESSE TIMA FLYNN (no [facility] phone) (no phone) 06-16-2018 Telephone encounter Type 2 diabetes JESSE THAKKAR (no [facility] mellitus with diabetic phone) (no phone) dermatitis no information Encounter for other no name no organiz ation name preprocedural examination no information Encounter for general no name no organ ization name adult medical examination without abnormal findings no information Pre-operative no name no organization name cardiovascular examination no information Pre-procedural no name no organization name laboratory examination no information Encounter for dental no name no organi zation name examination and cleaning without abnormal findings Medical Equipment No Information Payers Normalized Payer Value Medicare [id number] ([id number]) Summary Purpose eClinicalWorks SubmissioneClinicalWorks SubmissioneClinicalWorks SubmissioneClinicalWorks SubmissioneClinicalWorks SubmissioneClinicalWorks SubmissioneClinicalWorks Submission Advance Directives Directive Response Recor ded Date/Time Advance Directives No 12:23pm Organ Donor No 01/31/16 12:23pm Resuscitation Status Full Code 01/31/16 12:23pm Directive Response Recor ded Date/Time Advance Directives No 8:14am Organ Donor No 10/18/14 8:14am Resuscitation Status Full Code 10/18/14 8:14am Directive Response Recor ded Date/Time Advance Directives No 8:13am Health Care Power of Law Researcher No 05/29/19 8:13am Organ Donor No 05/29/19 8:13am Resuscitation Status Full Code 05/29/19 8:13am Discharge Instructions No hospital discharge instructions.No hospital discharge instructions.No hospital discharge instruction information available. Chief Complaint and Reason for Visit Chief Complaint Lower Extremity Reason for Visit Fracture of right t ibial plateau Additional Source Comments This clinical document has been generated using [employer] software that has been certified by the Office of the National Coordinator for Health Information Technology (ONC 15.99.04.3023.Diam.[id number]) and the National Committee for Home Sales Consultant (NCQA, as an eMeasure certified technology). FOR RECORDS PERTAINING TO PATIENTS WHO ARE OR HAVE BEEN ENROLLED IN A CHEMICAL D EPENDENCY/SUBSTANCE ABUSE PROGRAM, SOME INFORMATION MAY BE OMITTED. This clinica l summary was aggregated from multiple sources. Caution should be exercised in using it in the provision of clinical care. This summary normalizes information from multiple sources, and as a consequence, information in this document may ma terially change the coding, format and clinical context of patient data. In ravi tion, data may be omitted in some cases. CLINICAL DECISIONS SHOULD BE BASED ON T HE PRIMARY CLINICAL RECORDS. [employer] provides no warranty or guara ntee of the accuracy or completeness of information in this document.The followi ng information is based on time limited clinical information UNRECOGNIZED CONTENT PROVIDED BELOW FOR UNRECOGNIZED SECTION MEDICAL (GENERAL) HISTORY Type Description Date Medical History type II diabetes Medical History depression Medical History hypertension Surgical History Bilateral cataract remova l Surgical History DNC Surgical History Left carpal tunnel releas e Surgical History oral surgery Hospitalization History d and c Hospitalization History Diabetes 01/2016 Type Description Date Medical History type II diabetes Medical History depression Medical History hypertension Surgical History Bilateral cataract remova l Surgical History DNC Surgical History Left carpal tunnel releas e Surgical History oral surgery Surgical History colonoscopy 2 tubul aradenomas. Repeat in 3 years 12/2017 Hospitalization History d and c Hospitalization History Diabetes 01/2016 UNRECOGNIZED CONTENT PROVIDED BELOW FOR UNRECOGNIZED SECTION REASON FOR VISIT BH f/uDiabetes Pt in for f/u on DM Enedelia Manning requestBH f/uBH f/uLab (wal k-in)Orders from resultsRefill requestBlood in stools Pt in for possible UTI, c/ o pain in lower abdominal pain, had blood in stools on Friday and Friday also states her blood sugar has been elevated Erma Manning AssessmentDental Est. CareDiabetes Pt in for f/u on DM, felt there may be a problem with her glucomet er, checked it against our machine, her machine read 190 ours read 211.--JAMILA Manning
--- OUTSIDE RECORDS SUMMARY | 2020-01-20 03:13 | XMS REPORT | Continuity of Care Document ---
Demographics Preferred Language Unknown Marital Status Unknown Mu-Ism Affiliation Unknown Race Unknown Ethnic Group Unknown Author Organization Unknown Address Unknown Phone Unavailable Allergies Active Description Code Type Severity Reaction Onset Reported/Identified Relationship to Patient Clinical Status Yes No Known Drug Allergies [id number] Drug Allergy Unknown N/A 12/08/2017 Medications There is no data. Problems Date Dx Coded Attending Type Code Diagnosis Diagnosed By 10/10/2014 Ot V76.12 10/10/2014 TETE BERRY, JULIUS Rhodes Ot V76.1 2 10/18/2014 MARQUES DO CARLOS C Ot 621.0 10/18/2014 MARQUES DO CARLOS C Ot 627.1 10/18/2014 MARQUES DO, CARLOS C Ot V72.6 3 10/18/2014 MARQUES DO, CARLOS C Ot V72.8 1 10/18/2014 MARQUES DO CARLOS C Ot V74.8 10/18/2014 MARQUES DO CARLOS C Ot 618.0 4 RECTOCELE 10/18/2014 MARQUES DO, CARLOS C Ot 621.0 POLYP OF CORPUS UTERI 10/18/2014 MARQUES DO, CARLOS C Ot 627.1 POSTMENOPAUSAL BLEEDING 10/18/2014 MARQUES DO, CARLOS C Ot 627.3 ATROPHIC VAGINITIS 10/18/2014 MARQUES DO, CARLOS C Ot 793.5 NOSP (ABN) FINDINGS ON RADIOLOGICAL OT 10/26/2014 MARQUES DO, CARLOS C Ot 621.0 10/26/2014 MARQUES DO, CARLOS C Ot 627.1 10/26/2014 MARQUES DO, CARLOS C Ot V72.6 3 10/26/2014 MARQUES DO, CARLOS C Ot V72.8 1 10/26/2014 MARQUES DO, CARLOS C Ot V74.8 01/31/2016 MARQUES DO, CARLOS C Ot 621.0 POLYP OF CORPUS UTERI 01/31/2016 MARQUES DO, CARLOS C Ot 627.1 POSTMENOPAUSAL BLEEDING 01/31/2016 MARQUES DO, CARLOS C Ot V72.6 3 PRE-PROCEDURAL LABORATORY EXAMINATION 01/31/2016 CARLOS MARQUES DO Ot V72.8 1 [id number] CARDIOVASCULAR 01/31/2016 CARLOS MARQUES DO Ot V74.8 SCREEN-BACTERIAL DIS NEC 02/02/2016 YOUSUF RO DOI Ot B37.3 CANDIDIASIS OF VULVA AND VAGINA 02/02/2016 YOUSUF RO DOI Ot E13.10 OTH DIABETES MELLITUS WITH KETOACIDOSIS 02/02/2016 YOUSUF RO DOI Ot F31.9 BIPOLAR DISORDER, UNSPECIFIED 02/03/2016 YOUSUF RO DOI Ot B37.3 CANDIDIASIS OF VULVA AND VAGINA 02/03/2016 YOUSUF RO DOI Ot E11.65 TYPE 2 DIABETES MELLITUS WITH HYPERGLYCE 02/03/2016 YOUSUF RO DOI Ot E13.10 OTH DIABETES MELLITUS WITH KETOACIDOSIS 02/03/2016 YOUSUF RO DOI Ot F31.32 BIPOLAR DISORDER, CURRENT EPISODE DEPRES 02/03/2016 YOUSUF RO DOI Ot F31.9 BIPOLAR DISORDER, UNSPECIFIED 02/03/2016 YOUSUF RO DOI Ot F41.9 ANXIETY DISORDER, UNSPECIFIED 02/03/2016 YOUSUF RO DOI Ot L03.11 6 CELLULITIS OF LEFT LOWER LIMB 02/03/2016 YOUSUF RO DOI Ot L03.31 4 CELLULITIS OF GROIN 12/08/2017 NESTOR BERRY, DIPESH Childress Ot R19.8 OTH SYMPTOMS AND SIGNS INVOLVING THE DGS 12/08/2017 DIPESH BAEZ MD Ot Z01.818 ENCOUNTER FOR OTHER PREPROCEDURAL EXAMIN 12/09/2017 DIPESH BAEZ MD Ot R19.8 OTH SYMPTOMS AND SIGNS INVOLVING THE DGS 12/09/2017 NESTOR BERRY, DIPESH Childress Ot Z01.818 ENCOUNTER FOR OTHER PREPROCEDURAL EXAMIN 12/15/2017 CARLOS MARQUES DO C Ot 621.0 POLYP OF CORPUS UTERI 12/15/2017 CARLOS MARQUES DO C Ot 627.1 POSTMENOPAUSAL BLEEDING 12/15/2017 CARLOS MARQUES DO Ot V72.6 3 PRE-PROCEDURAL LABORATORY EXAMINATION 12/15/2017 CARLOS MARQUES DO Ot V72.8 1 [id number] CARDIOVASCULAR 12/15/2017 CARLOS MARQUES DO Ot V74.8 SCREEN-BACTERIAL DIS NEC 12/15/2017 DIPESH BAEZ MD Ot D12.0 BENIGN NEOPLASM OF CECUM 12/15/2017 DIPESH BAEZ MD Ot E11.9 TYPE 2 DIABETES MELLITUS WITHOUT COMPLIC 12/15/2017 DIPESH BAEZ MD Ot F32.9 MAJOR DEPRESSIVE DISORDER, SINGLE EPISOD 12/15/2017 DIPESH BAEZ MD Ot F41.9 ANXIETY DISORDER, UNSPECIFIED 12/15/2017 DIPESH BAEZ MD Ot K57.30 DVRTCLOS OF LG INT W/O PERFORATION OR AB 12/15/2017 DIPESH BAEZ MD Ot Z79.4 ASSISTED (CURRENT) USE OF INSULIN 12/15/2017 DIPESH BAEZ MD Ot Z79.899 OTHER ASSISTED (CURRENT) DRUG THERAPY 12/16/2017 DIPESH BAEZ MD, Ot E11.9 TYPE 2 DIABETES MELLITUS WITHOUT COMPLIC 12/16/2017 DIPESH BAEZ MD, Ot F32.9 MAJOR DEPRESSIVE DISORDER, SINGLE EPISOD 12/16/2017 DIPESH BAEZ MD Ot F41.9 ANXIETY DISORDER, UNSPECIFIED 12/16/2017 DIPESH BAEZ MD Ot K57.30 DVRTCLOS OF LG INT W/O PERFORATION OR AB 12/16/2017 DIPESH BAEZ MD Ot K63.5 POLYP OF COLON 12/16/2017 DIPESH BAEZ MD Ot Z79.4 ASSISTED (CURRENT) USE OF INSULIN 12/16/2017 DIPESH BAEZ MD Ot Z79.899 OTHER BEER MAKER (CURRENT) DRUG THERAPY 12/17/2017 DIPESH BAEZ MD Ot D12.0 BENIGN NEOPLASM OF CECUM 12/17/2017 DIPESH BAEZ MD Ot E11.9 TYPE 2 DIABETES MELLITUS WITHOUT COMPLIC 12/17/2017 DIPESH BAEZ MD Ot F32.9 MAJOR DEPRESSIVE DISORDER, SINGLE EPISOD 12/17/2017 DIPESH BAEZ MD Ot F41.9 ANXIETY DISORDER, UNSPECIFIED 12/17/2017 DIPESH BAEZ MD Ot K57.30 DVRTCLOS OF LG INT W/O PERFORATION OR AB 12/17/2017 DIPESH BAEZ MD Ot Z79.4 ASSISTED (CURRENT) USE OF INSULIN 12/17/2017 DIPESH BAEZ MD Ot Z79.899 OTHER BEER MAKER (CURRENT) DRUG THERAPY 06/11/2018 SHELLI MATTHEWS CARLOS C Ot 621.0 POLYP OF CORPUS UTERI 06/11/2018 SHELLI MATTHEWS CARLOS Anand Ot 627.1 POSTMENOPAUSAL BLEEDING 06/11/2018 SHELLI MATTHEWS CARLOS Anand Ot V72.6 3 PRE-PROCEDURAL LABORATORY EXAMINATION 06/11/2018 SHELLI MATTHEWS CARLOS Anand Ot V72.8 1 [id number] CARDIOVASCULAR 06/11/2018 SHELLI MATTHEWS CARLOS Anand Ot V74.8 SCREEN-BACTERIAL DIS NEC 06/11/2018 JESSE THAKKAR INDEPENDENT FREIGHT AGENT Ot Z12.31 ENCNTR SCREEN MAMMOGRAM FOR MALIGNANT NE 06/12/2018 JESSE THAKKAR INDEPENDENT FREIGHT AGENT Ot Z12.31 ENCNTR SCREEN MAMMOGRAM FOR MALIGNANT NE 06/12/2018 JESSE THAKKAR INDEPENDENT FREIGHT AGENT Ot Z12.31 ENCNTR SCREEN MAMMOGRAM FOR MALIGNANT NE 06/13/2018 JESSE THAKKARP Ot Z12.31 ENCNTR SCREEN MAMMOGRAM FOR MALIGNANT NE 07/06/2018 JESSE THAKKAR INDEPENDENT FREIGHT AGENT Ot Z12.31 ENCNTR SCREEN MAMMOGRAM FOR MALIGNANT NE 05/29/2019 REGI FALCON DO Ot E11.9 TYPE 2 DIABETES MELLITUS WITHOUT COMPLIC 05/29/2019 REGI FALCON DO Ot F03.90 UNSPECIFIED DEMENTIA WITHOUT BEHAVIORAL 05/29/2019 REGI FALCON DO Ot F32.9 MAJOR DEPRESSIVE DISORDER, SINGLE EPISOD 05/29/2019 REGI FALCON DO Ot F41.9 ANXIETY DISORDER, UNSPECIFIED 05/29/2019 REGI FALCON DO Ot I10 ESSENTIAL (PRIMARY) HYPERTENSION 05/29/2019 REGI FALCON DO K Ot M25.561 PAIN IN RIGHT KNEE 05/29/2019 REGI FALCON DO Ot S82.141 A DISPLACED BICONDYLAR FRACTURE OF RIGHT T 05/29/2019 REGI FALCON DO Ot W10.9XX A FALL (ON) (FROM) UNSPECIFIED STAIRS AND 05/29/2019 REGI FALCON DO Ot Z79.4 ASSISTED (CURRENT) USE OF INSULIN 05/29/2019 REGI FALCON DO Ot Z80.0 FAMILY HISTORY OF MALIGNANT NEOPLASM OF 05/29/2019 REGI FALCON DO Ot Z87.440 PERSONAL HISTORY OF URINARY (TRACT) INFE Procedures There is no data. Results Test Result Range Comp. Metabolic Panel (14) - 07/08/16 09 :26 Glucose, Serum 289 mg/dL 65-99 BUN 7 mg/dL 8-27 Creatinine, Serum 0.66 mg/dL 0.57-1.00 eGFR If NonAfricn Am 93 mL/min/1.73 >59 eGFR If Africn Am 107 mL/min/1.73 >5 9 BUN/Creatinine Ratio 11 11-26 Sodium, Serum 139 mmol/L 136-144 Potassium, Serum 4.2 mmol/L 3.5-5.2 Chloride, Serum 98 mmol/L 97-106 Carbon Dioxide, Total 25 mmol/L 18-29 Calcium, Serum 9.3 mg/dL 8.7-10.3 Protein, Total, Serum 6.6 g/dL 6.0-8.5 Albumin, Serum 4.0 g/dL 3.6-4.8 Globulin, Total 2.6 g/dL 1.5-4.5 A/G Ratio 1.5 1.1-2.5 Bilirubin, Total 0.5 mg/dL 0.0-1.2 Alkaline Phosphatase, S 153 IU/L 39-117 AST (SGOT) 16 IU/L 0-40 ALT (SGPT) 10 IU/L 0-32 Lipid Panel - 07/08/16 09:26 Cholesterol, Total 213 mg/dL 100-199 Triglycerides 167 mg/dL 0-149 HDL Cholesterol 28 mg/dL >39 VLDL Cholesterol Del 33 mg/dL 5-40 LDL Cholesterol Calc 152 mg/dL 0-99 Lipid Panel - 05/21/17 14:37 Cholesterol, Total 224 mg/dL 100-199 Triglycerides 166 mg/dL 0-149 HDL Cholesterol 39 mg/dL >39 VLDL Cholesterol Del 33 mg/dL 5-40 LDL Cholesterol Calc 152 mg/dL 0-99 LIPID PANEL - 05/21/17 14:37 Cholesterol, Total 224 mg/dL 100-199 Triglycerides 166 mg/dL 0-149 HDL Cholesterol 39 mg/dL >39 VLDL Cholesterol Del 33 mg/dL 5-40 LDL Cholesterol Calc 152 mg/dL 0-99 Comment: NRG CULTURE, URINE - 08/22/17 10:02 CULTURE, URINE, ROUTINE SEE NOTE NRG CULTURE, URINE - 09/18/17 19:00 CULTURE, URINE, ROUTINE SEE NOTE NRG Capillary blood glucose measurement by g lucometer (mass/volume) - 12/15/17 09:22 Capillary blood glucose measurement by glucometer (mas s/volume) 124 mg/dL 70-110 VITAMIN D, 25-H - 06/02/18 09:42 VITAMIN D,25-OH,TOTAL,IA 27 ng/mL 30-10 0 LIPID PANEL - 01/13/19 12:09 CHOLESTEROL, TOTAL 154 mg/dL <200 HDL CHOLESTEROL 37 mg/dL >50 TRIGLYCERIDES 159 mg/dL <150 LDL-CHOLESTEROL 91 mg/dL (calc) NRG CHOL/HDLC RATIO 4.2 (calc) <5.0 NON HDL CHOLESTEROL 117 mg/dL (calc) <13 0 VITAMIN D, 25-H - 01/13/19 12:09 VITAMIN D,25-OH,TOTAL,IA 38 ng/mL 30-10 0 LAMOTRIGINE (LAMICTAL), SERUM - 01/28/19 08:41 LAMOTRIGINE 5.0 mcg/mL 4.0-18.0 TSH - 01/14/20 11:22 TSH 1.28 mIU/L 0.40-4.50 Encounters ACCT No. Visit Date/Time Discharge Status Pt. Type Provider Facility Loc./Unit Complaint [id number] 05/22/2017 08:06:00 Document Registration [id number] 05/29/2019 07:52:00 019 10:17:00 DIS Emergency TERRIE REGI MATTHEWS [facility] ER FALL - R KNEE PAIN [id number] 06/11/2018 09:38:00 018 23:59:59 CLS Outpatient JESSE THAKKAR Via [facility] RAD SCREENING [id number] 12/15/2017 08:48:00 018 12:30:00 DIS Outpatient DIPESH BAEZ MD Via [facility] ENDO POSITIVE COLORECTAL [id number] 12/08/2017 05:42:00 018 11:33:00 DIS Outpatient DIPESH BAEZ MD Via [facility] PREOP COLONOSCOPY [id number] 01/31/2016 10:37:00 016 17:09:00 DIS Inpatient JIA MATTHEWS, FABRICE Danielson ia [facility] 4TH CELLULITIS,HYPERGLYCEMI A [id number] 10/18/2014 08:18:00 015 14:15:00 DIS Outpatient CARLOS MARQUES DO Via [facility] SDC POST MENOPAUSAL BLEEDIN G; ENDOMETRIAL POLYP [id number] 10/12/2014 08:51:00 015 23:59:59 CLS Outpatient CARLOS MARQUES DO Via [facility] PREOP POST MENOPAUSAL BLEEDIN G; ENDOMETRIAL POLYP [id number] 06/15/2013 08:41:00 013 23:59:59 CLS Outpatient JULIUS EPSTEIN MD Via [facility] RAD [id number] 01/20/2020 03:05:[address] Emergency REGI FALCON DO Via [facility] ER VOMITING,NAUSEA,TYPE II DIAB ETES [id number] 07/12/2009 12:21:00 Document Registration [id number] 11/17/2019 10:20:00 11/17/2019 23:59: 59 CLS Outpatient JESSE THAKKAR APRN [facility] [id number] 01/14/2020 11:00:00 Document Registration [id number] 01/28/2019 08:20:00 Document Registration [id number] 01/13/2019 11:00:00 Document Registration [id number] 06/02/2018 10:00:00 Document Registration [id number] 09/18/2017 09:10:00 Document Registration [id number] 08/22/2017 09:40:00 Document Registration [id number] 05/21/2017 13:40:00 Document Registration [id number] 07/09/2016 08:35:00 Document Registration
[2020-01-20] MEDS ORDERED: NS IV 1000 ML 1,000 ML IV SCH (03:21)
[2020-01-20] MEDS ORDERED: ONDANSETRON 4 MG/2 ML (SDV) Z0FRAN IVP ONE (03:30)
--- NOTE | 2020-01-20 03:53 | ED General ---
General Chief Complaint: General Problems/Pain Stated Complaint: VOMITING,NAUSEA,TYPE II DIABETES Nursing Triage Note: vomitted x1, headache (resolved), "felt hot" Nursing Sepsis Screen: No Definite Risk Source of Information: Patient (EXTREMELY DIFFICULT HISTORIAN) History of Present Illness Date Seen by Provider: January 20, 2020 Time Seen by Provider: 03:30 Initial Comments PT ARRIVES VIA POV FROM HOME PT STATES YESTERDAY AFTERNOON AROUND 1400, SHE HAD A HEADACHE, GOT NAUSEATED, TOOK AND EXCEDRIN AND HER HEADACHE WENT AWAY, THEN SHE "FELT HOT" AND VOMITED X 1 STATES SHE TOOK A PILL FOR "UPSET STOMACH" AND IT HELPED. ALL OF THOSE SYMPTOMS ARE GONE NO DIARRHEA NO ABDOMINAL PAIN NO URINARY SYMPTOMS CHECKED TEMP 3 TIMES AND NO FEVER AT ANY TIME HAS BEEN EATING AND DRINKING WELL WITHOUT DIFFICULTY NO FEVER/SWEATS/CHILLS NO CHEST PAIN NO SHORTNESS OF BREATH NO COUGH NO SWELLING IN LEGS/FEET NO HEADACHE NO VISION CHANGES NO PARESTHESIAS OR MOTOR DEFICITS NO PALPITATIONS PT IS DIABETIC AND BLOOD SUGARS HAVE BEEN IN THE 200'S NO KNOWN SICK CONTACTS OR EXPOSURE TO COVID-19 NO RECENT RECENT TRAVEL HAD ROUTINE 3 MONTH FOLLOW UP WITH ROSENDO, ANGELA THAKKAR YESTERDAY. STARTED ON FISH OIL--TOOK 1 DOSE, AND WAS ALSO GIVEN RX FOR "FLUID PILL" BUT HAS NOT STARTED IT YET IS UNCLEAR WHY SHE IS IN ER, SHE REPORTS THAT ALL OF HER SYMPTOMS ARE GONE, AND OCCURRED YESTERDAY AFTERNOON PCP: ROSENDO THAKKAR Allergies and Home Medications Allergies Coded Allergies: No Known Drug Allergies (Unverified , 12/08/17) Home Medications Donepezil HCl 5 Mg Tablet, 5 MG PO DAILY, (Reported) Eszopiclone 3 Mg Tablet, 3 MG PO HS, (Reported) Hydrocodone Bit/Acetaminophen 1 Tab Tab, 1 EACH PO Q4H PRN for PAIN-MODERATE Prescribed by: REGI FALCON on 05/29/19 1004 Insulin Aspart 100 Unit/1 Ml Susp, 1,000 UNIT SQ SSI, (Reported) Insulin Degludec 100 Unit/1 Ml Insuln.pen, 20 UNIT SQ DAILY, (Reported) Lamotrigine 100 Mg Tablet, 100 MG PO BID, (Reported) Metformin HCl 500 Mg Tablet, 500 MG PO DAILY, (Reported) Multivitamin 1 Each Tablet, 1 EACH PO DAILY, (Reported) Ondansetron 4 Mg Tab.rapdis, 4 MG PO Q4H Prescribed by: REGI FALCON on 01/20/20 0428 Vilazodone Hydrochloride 40 Mg Tablet, 40 MG PO DAILY, (Reported) Patient Home Medication List Home Medication List Reviewed: Yes Review of Systems Review of Systems Constitutional: no symptoms reported; No chills, No diaphoresis, No dizziness, No fever, No malaise, No weakness EENTM: no symptoms reported; No nose congestion, No throat pain Respiratory: no symptoms reported; No cough, No short of breath, No wheezing Cardiovascular: no symptoms reported; No chest pain, No edema, No palpitations, No syncope, No vascular heart diseas Gastrointestinal: see HPI; No abdominal pain, No constipation, No diarrhea, No loss of appetite; nausea, vomiting Genitourinary: no symptoms reported; No dysuria, No frequency Musculoskeletal: no symptoms reported Skin: no symptoms reported Psychiatric/Neurological: See HPI; Denies Numbness, Denies Paresthesia, Denies Seizure, Denies Tingling, Denies Weakness Hematologic/Lymphatic: No Symptoms Reported Immunological/Allergic: no symptoms reported Past Fyidall-Rgiizw-Yjjzcc Hx Past Med/Social Hx: Reviewed and Corrections made Patient Social History Alcohol Use: Denies Use Recreational Drug Use: No Smoking Status: Never a Smoker Recent Foreign Travel: No Contact w/Someone Who Travel: No Recent Infectious Disease Expo: No Recent Hopitalizations: No Physical Abuse: No Sexual Abuse: No Mistreated: No Fear: No Immunizations Up To Date Tetanus Booster (TDap): Unknown Date of Influenza Vaccine: Jun 30, 2017 Seasonal Allergies Seasonal Allergies: No Past Medical History Surgeries: Yes (BILAT CATARACTS; COLONOSCOPY WITH POLYPECTOMY 10/2017;L CARPAL TUNNEL;D&C; ) Eye Surgery, Orthopedic Respiratory: Yes Pneumonia Currently Using CPAP: No Currently Using BIPAP: No Cardiac: Yes High Cholesterol, Hypertension Neurological: Yes Dementia : No Reproductive Disorders: Yes (D&C 2015 FOR VAGINAL BLEEDING/SPOTTING) 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 Sexually Transmitted Disease: No HIV/AIDS: No Genitourinary: Yes UTI-Chronic Gastrointestinal: Yes (COLONOSCOPY 10/2017-POLYPS AND DIVERTICULAR DISEASE NOTED) Diverticulosis, Polyps Musculoskeletal: Yes (RIGHT TIBIAL PLATEAU FX 05/2019;LEFT CARPAL TUNNEL) Arthritis, Fractures Endocrine: Yes Diabetes, Insulin dep HEENT: Yes (BILATERAL CATARACT SURGERY ; TEETH REMOVED) Cataract Loss of Vision: Bilateral Hearing Impairment: Hard of Hearing, Bilateral Hearing Aide Cancer: No Psychosocial: Yes Anxiety, Depression Integumentary: No Blood Disorders: No Adverse Reaction/Blood Tranf: No (N/A) Family Medical History Arthritis 19 MOTHER BREAST CA GRANDMOTHER BREAST CA GRANDMOTHER Diabetes mellitus 19 FATHER Parkinson's disease 19 MOTHER Physical Exam Vital Signs Vital Signs - First Documented 01/20/20 03:29 Temp 36.0 Pulse 114 Resp 20 B/P (MAP) 182/98 (126) Pulse Ox 96 O2 Delivery Room Air Capillary Refill : Less Than 3 Seconds Height, Weight, BMI Height: 5'0.00" Weight: 165lbs. 0.0oz. 74.247107on; 32.00 BMI Method: General Appearance: No Apparent Distress, WD/WN, Obese, Other (TALKS NON-STOP, DIFFICULT TO KEEP ON SUBJECT) HEENT: PERRL/EOMI, TMs Normal, Normal ENT Inspection, Pharynx Normal, Other (EDENTULOUS) Neck: Normal Inspection Respiratory: Normal Breath Sounds, No Accessory Muscle Use, No Respiratory Distress Cardiovascular: Regular Rate, Rhythm, No Edema, No JVD, No Murmur Gastrointestinal: Normal Bowel Sounds, No Organomegaly, No Pulsatile Mass, Non Tender, Soft, Mass (LARGE VENTRAL HERNIA. NON-TENDER. SOFT) Back: Normal Inspection, No CVA Tenderness Extremity: Normal Capillary Refill, Normal Inspection, Normal Range of Motion, Non Tender, No Calf Tenderness, No Pedal Edema Neurologic/Psychiatric: Alert, Oriented x3, No Motor/Sensory Deficits, Normal Mood/Affect, infant nanny II-XII Norm as Tested Skin: Normal Color, Warm/Dry; No Rash Progress/Results/Core Measures Suspected Sepsis Recent Fever Within 48 Hours: No Infection Criteria Present: None New/Unexplained Altered Menta: No Sepsis Screen: No Definite Risk SIRS Temperature: Pulse: 114 Respiratory Rate: 20 Laboratory Tests 01/20/20 03:50: White Blood Count 12.5H Blood Pressure 182 /98 Mean: 126 Laboratory Tests 01/20/20 03:50: Creatinine 0.80, Platelet Count 282, Total Bilirubin 0.6 Results/Orders Lab Results Laboratory Tests Test 01/20/20 03:50 01/20/20 03:56 Range/Units White Blood Count 12.5 H 4.3-11.0 10^3/uL Red Blood Count 5.12 4.35-5.85 10^6/uL Hemoglobin 14.7 11.5-16.0 G/DL Hematocrit 44 35-52 % Mean Corpuscular Volume 85 80-99 FL Mean Corpuscular Hemoglobin 29 25-34 PG Mean Corpuscular Hemoglobin Concent 34 32-36 G/DL Red Cell Distribution Width 13.7 10.0-14.5 % Platelet Count 282 130-400 10^3/uL Mean Platelet Volume 8.9 7.4-10.4 FL Neutrophils (%) (Auto) 60 42-75 % Lymphocytes (%) (Auto) 33 12-44 % Monocytes (%) (Auto) 7 0-12 % Eosinophils (%) (Auto) 1 0-10 % Basophils (%) (Auto) 0 0-10 % Neutrophils # (Auto) 7.4 1.8-7.8 X 10^3 Lymphocytes # (Auto) 4.1 H 1.0-4.0 X 10^3 Monocytes # (Auto) 0.8 0.0-1.0 X 10^3 Eosinophils # (Auto) 0.1 0.0-0.3 10^3/uL Basophils # (Auto) 0.0 0.0-0.1 10^3/uL Urine Color YELLOW Urine Clarity CLEAR Urine pH 6.0 5-9 Urine Specific [place] 1.020 1.016-1.022 Urine Protein NEGATIVE NEGATIVE Urine Glucose (UA) TRACE H NEGATIVE Urine Ketones TRACE H NEGATIVE Urine Nitrite NEGATIVE NEGATIVE Urine Bilirubin NEGATIVE NEGATIVE Urine Urobilinogen 0.2 < = 1.0 MG/DL Urine Leukocyte Esterase NEGATIVE NEGATIVE Urine RBC (Auto) NEGATIVE NEGATIVE Urine RBC 0-2 /HPF Urine WBC RARE /HPF Urine Squamous Epithelial Cells RARE /HPF Urine Crystals NONE /LPF Urine Bacteria NEGATIVE /HPF Urine Casts NONE /LPF Urine Mucus NEGATIVE /LPF Urine Culture Indicated NO Sodium Level 143 135-145 MMOL/L Potassium Level 4.0 3.6-5.0 MMOL/L Chloride Level 103 98-107 MMOL/L Carbon Dioxide Level 23 21-32 MMOL/L Anion Gap 17 H 5-14 MMOL/L Blood Urea Nitrogen 8 7-18 MG/DL Creatinine 0.80 0.60-1.30 MG/DL Estimat Glomerular Filtration Rate > 60 BUN/Creatinine Ratio 10 Glucose Level 219 H 70-105 MG/DL Calcium Level 10.1 8.5-10.1 MG/DL Corrected Calcium 8.5-10.1 MG/DL Magnesium Level 1.9 1.6-2.4 MG/DL Total Bilirubin 0.6 0.1-1.0 MG/DL Aspartate Amino Transf (AST/SGOT) 23 5-34 U/L Alanine Aminotransferase (ALT/SGPT) 22 0-55 U/L Alkaline Phosphatase 161 H 40-136 U/L Total Protein 7.8 6.4-8.2 GM/DL Albumin 4.7 H 3.2-4.5 GM/DL Amylase Level 31 25-125 U/L Lipase 9 8-78 U/L Glucometer 211 H 70-110 MG/DL My Orders Orders - REGI FALCON DO Accucheck Stat ONCE (01/20/20 03:21) Ekg Tracing (01/20/20 03:21) Monitor-Rhythm Ecg Trace Only (01/20/20 03:21) Amylase (01/20/20 03:21) Cbc With Automated Diff (01/20/20 03:21) Comprehensive Metabolic Panel (01/20/20 03:21) Lipase (01/20/20 03:21) Magnesium (01/20/20 03:21) Ua Culture If Indicated (01/20/20 03:21) Ed Iv/Invasive Line Start (01/20/20 03:21) Ns Iv 1000 Ml (Sodium Chloride 0.9%) (01/20/20 03:21) Ondansetron Injection (Zofran Injectio (01/20/20 03:30) Medications Given in ED Current Medications Medications Dose Ordered Sig/Cherie Route Start Time Stop Time Status Last Admin Dose Admin Ondansetron HCl 4 mg ONCE ONCE IVP 01/20/20 03:30 01/20/20 03:31 DC 01/20/20 03:50 4 MG Vital Signs/I&O 01/20/20 01/20/20 03:29 04:30 Temp 36.0 36.0 Pulse 114 96 Resp 20 18 B/P (MAP) 182/98 (126) 175/92 (126) Pulse Ox 96 95 O2 Delivery Room Air Room Air Capillary Refill : Less Than 3 Seconds Blood Pressure Mean: 126 Progress Note : Progress Note ACCUCHECK 211 NO SYMPTOMS OF ANY KIND DURING ER STAY AT DISMISSAL, SHE STATES THAT SHE HAS BEEN VERY ANXIOUS, AND THINKS THAT IS WHAT CAUSED HER SYMPTOMS ECG Initial ECG Impression Date: January 20, 2020 Initial ECG Impression Time: 03:58 Initial ECG Rate: 98 Initial ECG Rhythm: Normal Sinus Departure Impression Primary Impression: IDDM (insulin dependent diabetes mellitus) Additional Impressions: SINGLE EPISODE OF VOMITING HTN (hypertension) Disposition: HOME, SELF-CARE Condition: Stable Departure-Patient Inst. Referrals: [facility] (PCP) Primary Care Physician JESSE THAKKAR (Family) Primary Care Physician Patient Instructions: Sick Day Management for Diabetics, Type 2 Diabetes Add. Discharge Instructions: CLEAR LIQUIDS--WATER, BROTH, JELLO, GATORADE BRATS DIET --BANANAS, RICE, APPLESAUCE, TOAST, SALTINES FOLLOW UP WITH [facility] IN 1-2 DAYS IF SYMPTOMS PERSIST All discharge instructions reviewed with patient and/or family. Voiced understanding. Scripts Ondansetron (Ondansetron Odt) 4 Mg Tab.rapdis 4 MG PO Q4H for Nausea/Vomiting, #10 TAB Prov: REGI FALCON DO 01/20/20 REGI FALCON DO January 20, 2020 03:53
[2020-01-20 04:03] LABS: BILIRUBIN,URINE NEGATIVE (NEGATIVE); CLARITY,URINE CLEAR; COLOR,URINE YELLOW; GLUCOSE, URINE (UA) TRACE (NEGATIVE); KETONES,URINE TRACE (NEGATIVE); LEUKOCYTE ESTERASE ,URINE NEGATIVE (NEGATIVE); NITRITE,URINE NEGATIVE (NEGATIVE); PROTEIN,URINE NEGATIVE (NEGATIVE)
[2020-01-20 04:05] LABS: BASOPHILS % (AUTO) 0 % (0-10); EOSINOPHILS # (AUTO) 0.1 10^3/uL (0.0-0.3); EOSINOPHILS % (AUTO) 1 % (0-10); HEMATOCRIT 44 % (35-52); HEMOGLOBIN 14.7 G/DL (11.5-16.0); LYMPHOCYTES # (AUTO) 4.1 X 10^3 (1.0-4.0); LYMPHOCYTES % (AUTO) 33 % (12-44); MEAN CORPUSCULAR HEMOGLOBIN 29 PG (25-34); MEAN CORPUSCULAR HGB CONC 34 G/DL (32-36); MEAN CORPUSCULAR VOLUME 85 FL (80-99); MEAN PLATELET VOLUME 8.9 FL (7.4-10.4); MONOCYTES # (AUTO) 0.8 X 10^3 (0.0-1.0); MONOCYTES % (AUTO) 7 % (0-12); NEUTROPHILS # (AUTO) 7.4 X 10^3 (1.8-7.8); NEUTROPHILS % (AUTO) 60 % (42-75); PLATELET COUNT 282 10^3/uL (130-400); RED CELL DISTRIBUTION WIDTH 13.7 % (10.0-14.5); WHITE BLOOD COUNT 12.5 10^3/uL (4.3-11.0)
[2020-01-20 04:11] LABS: BACTERIA,URINE NEGATIVE /HPF; RBC,URINE 0-2 /HPF; SQUAMOUS EPITHELIAL CELL,UR RARE /HPF; WBC,URINE RARE /HPF
[2020-01-20 04:13] LABS: ALBUMIN 4.7 GM/DL (3.2-4.5); CHLORIDE 103 MMOL/L (98-107); SODIUM 143 MMOL/L (135-145)
[2020-01-20 04:14] LABS: CALCIUM 10.1 MG/DL (8.5-10.1)
[2020-01-20 04:15] LABS: AMYLASE 31 U/L (25-125); GLUCOSE 219 MG/DL (70-105)
[2020-01-20 04:16] LABS: TOTAL PROTEIN 7.8 GM/DL (6.4-8.2)
[2020-01-20 04:17] LABS: BILIRUBIN,TOTAL 0.6 MG/DL (0.1-1.0); CARBON DIOXIDE 23 MMOL/L (21-32)
[2020-01-20 04:19] LABS: ALKALINE PHOSPHATASE 161 U/L (40-136); GFR ESTIMATED > 60
[2020-01-20 04:20] LABS: BUN/CREATININE RATIO 10
[2020-01-20 04:22] LABS: ALANINE AMINOTRANSFERASE 22 U/L (0-55); MAGNESIUM 1.9 MG/DL (1.6-2.4)
[2020-01-20 04:23] LABS: LIPASE 9 U/L (8-78)
[2020-01-20] MEDS ORDERED: ONDA4TAB11 PO (04:28)
[2020-01-20 04:30] VITALS: BP 175/92
== END 2020-01-20 04:33 | disposition home or self-care (01) ==
LOC: EDUNIT# 03:02 → ER 03:05
DX: E11.9 Type 2 diabetes mellitus without complications (principal); R11.2 Nausea with vomiting, unspecified; I10 Essential (primary) hypertension; F03.90 Unspecified dementia, unspecified severity, without behavioral disturbance, psychotic disturbance, mood disturbance, and anxiety; F41.9 Anxiety disorder, unspecified; F32.9 Major depressive disorder, single episode, unspecified; Z79.4 Long term (current) use of insulin; Z80.3 Family history of malignant neoplasm of breast
CPT/HCPCS: 36415; 80053; 81000; 82150; 82962; 83690; 83735; 85025; 93005; 93041; 96361; 96374

== ENCOUNTER → 2020-04-21 | Outpatient (CLI) | payer MEDICARE ==
[~2020-04-21] MED LIST changes: +ONDA4TAB11 PO
--- NOTE | 2020-04-21 12:13 | Diagnostic Imaging Report ---
INDICATION: Routine screening. Comparison is made with prior mammogram from 06/11/2018 and 06/15/2013. 2-D and 3-D bilateral screening mammography was performed with CAD. Scattered fibroglandular densities are identified bilaterally. There are scattered benign-appearing calcifications in both breasts. No dominant mass or malignant appearing microcalcifications are seen. Axillae are unremarkable. IMPRESSION: BI-RADS Category 2 No mammographic features suspicious for malignancy are identified. ACR BI-RADS Category 2: Benign findings. Result letter will be mailed to the patient. Note: At least 10% of breast cancer is not imaged by mammography. Dictated by: Dictated on workstation # [id number]
== END ==
LOC: RAD 10:00
PROVIDERS: ATTEND Nurse Practitioner Community Health
DX: Z12.31 Encounter for screening mammogram for malignant neoplasm of breast (principal)
CPT/HCPCS: 77063; 77067

== ENCOUNTER → 2020-12-05 | Outpatient (CLI) | payer MEDICARE ==
--- NOTE | 2020-12-05 14:29 | Diagnostic Imaging Report ---
INDICATION: Postmenopausal screening COMPARISON: Baseline FINDINGS: AP Spine L1-L4: [BMD (g/cm2): 1.021] [T-Score: -1.5] [Z-Score: -0.2] [BMD Previous: NA] [BMD % Change: NA] LT Hip Neck: [BMD (g/cm2): 0.748] [T-Score: -2.1] [Z-Score: -0.7] LT Hip Total: [BMD (g/cm2):0.856] [T-Score:-1.2] [Z-Score: 0.0] [BMD Previous: NA] [BMD % Change: NA] RT Hip Neck: [BMD (g/cm2):0.818] [T-Score:-1.6] [Z-Score:-0.2] RT Hip Total: [BMD (g/cm2):0.825] [T-score:-1.5] [Z-Score:-0.3] [BMD Previous:NA] [BMD % Change:NA] *Indicates significant change from prior examination based on 95% confidence level. World Health Organization criteria for BMD interpretation classify patients as Normal (T-score at or above -1.0), Osteopenic (T-score between -1.0 and -2.5) or Osteoporotic (T-score at or below -2.5). LIMITATIONS AND MODIFICATION: None. FRACTURE RISK (FRAX SCORE): The ten year probability of (%): Major Osteoporotic Fracture: [18.3] Hip Fracture: [3.5] IMPRESSION: 1. Osteopenia (Low bone mass). 2. Baseline examination. 3. See below National Osteoporosis Foundation guidelines on when to potentially initiate pharmacologic therapy. Based on the National Osteoporosis Foundation Guidelines, pharmacologic treatment should be initiated in any of the following, unless clinical conditions suggest otherwise: * Any patient with prior fragility fracture of the hip or vertebrae. A spine fracture indicates 5X risk for subsequent spine fracture and 2X risk for subsequent hip fracture. * Osteoporosis (T-score <-2.5). * Postmenopausal women and men age 50 and older with low bone mass/osteopenia (T-score between -1.0 and -2.5) by DXA and 10-year major osteoporotic fracture greater than 20% or a 10-year probability of hip fracture greater than 3%. These fracture risks are supplied above in the FRAX score, if applicable. * Clinician judgement and/or patient preferences may indicate treatment for people with 10-year fracture probabilities above or below these levels. Dictated by: Dictated on workstation # [id number]
== END ==
LOC: RAD 14:00
PROVIDERS: ATTEND Nurse Practitioner Family
DX: Z00.00 Encounter for general adult medical examination without abnormal findings (principal); M85.80 Other specified disorders of bone density and structure, unspecified site
CPT/HCPCS: 77080

== ENCOUNTER → 2021-04-25 | Outpatient (CLI) | payer MEDICARE ==
[~2021-04-25] MED LIST changes: +GADOBUTROL 10 MMOL/10 ML (GADAVIST) VIAL IV ONE; -OLAN5TAB25 PO; +OLN5T PO
--- NOTE | 2021-04-25 11:14 | Diagnostic Imaging Report ---
PROCEDURE: MR imaging of the brain with and without contrast. TECHNIQUE: Multiplanar, multisequence MR imaging of the brain was performed with and without contrast. INDICATION: Mental status changes and depression. COMPARISON: No prior studies are available for comparison. FINDINGS: The ventricles and sulci are within normal limits. Mild periventricular and subcortical white matter signal abnormalities are noted, consistent with chronic microvascular ischemia. There is no diffusion restriction identified to suggest acute ischemia. Normal expected flow-voids within the carotid siphons are seen. No acute intra-axial or extra-axial hemorrhage is detected. The corpus callosum is unremarkable. The sella and parasellar structures are unremarkable. No abnormal enhancement is identified following contrast administration. There does appear to be fluid filling the left maxillary sinus. IMPRESSION: 1. Left maxillary sinus disease. 2. Changes of chronic microvascular ischemia, mild. No other significant abnormality is detected. Dictated by: Dictated on workstation # [id number]
== END ==
LOC: RAD 09:30
PROVIDERS: ATTEND Nurse Practitioner
DX: F01.51 Vascular dementia, unspecified severity, with behavioral disturbance (principal); F32.9 Major depressive disorder, single episode, unspecified; J32.0 Chronic maxillary sinusitis; I67.82 Cerebral ischemia
CPT/HCPCS: 70553

== ENCOUNTER 2021-05-18 11:39 | Outpatient (CLI) | payer MEDICARE ==
[~2021-05-18] VITALS: Ht 154.9 cm; Wt 76.7 kg
[2021-05-18 11:37] VITALS: BP 136/61
[~2021-05-18 11:39] MED LIST changes: -GADOBUTROL 10 MMOL/10 ML (GADAVIST) VIAL IV ONE
[2021-05-18] MEDS ORDERED: EPINEPHrine INJECTION 1 MG/ML AMP IM PRN (12:00)
[2021-05-18] MEDS ORDERED: CASIRIVIMAB/IMDEVIMAB 1,200 MG in NS (IVPB) 250 ML IV ONE (12:00)
[2021-05-18] MEDS ORDERED: diphenhydrAMINE 50 MG/ML INJ (BENADRYL) IV PRN (12:00)
[2021-05-18] MEDS ORDERED: ACETAMINOPHEN 500 MG TAB (TYLENOL) PO PRN (12:00)
[2021-05-18] MEDS ORDERED: ONDANSETRON 4 MG/2 ML (SDV) Z0FRAN IV PRN (12:00)
[2021-05-18 12:45] VITALS: BP 130/66
== END 2021-05-18 13:37 | disposition home or self-care (01) ==
LOC: INFUSION 11:39
PROVIDERS: ATTEND Nurse Practitioner Family
DX: Z23 Encounter for immunization (principal); U07.1 COVID-19

== ENCOUNTER 2022-03-21 07:49 | Emergency (ER) | payer MEDICARE ==
[~2022-03-21] VITALS: Ht 154.9 cm; Wt 72.0 kg
[~2022-03-21 07:49] MED LIST changes: -FLUC200T5 PO; +FLUC200T9 PO
[2022-03-21 08:14] LABS: BILIRUBIN,URINE NEGATIVE (NEGATIVE); CLARITY,URINE CLEAR; COLOR,URINE YELLOW; GLUCOSE, URINE (UA) 3+ (NEGATIVE); KETONES,URINE NEGATIVE (NEGATIVE); LEUKOCYTE ESTERASE ,URINE NEGATIVE (NEGATIVE); NITRITE,URINE NEGATIVE (NEGATIVE); PH,URINE 5.5 (5-9); PROTEIN,URINE NEGATIVE (NEGATIVE)
[2022-03-21 08:21] LABS: BASOPHILS % (AUTO) 0 % (0-10); EOSINOPHILS # (AUTO) 0.2 10^3/uL (0.0-0.3); EOSINOPHILS % (AUTO) 2 % (0-10); HEMATOCRIT 42 % (35-52); HEMOGLOBIN 14.1 g/dL (11.5-16.0); LYMPHOCYTES # (AUTO) 3.8 10^3/uL (1.0-4.0); LYMPHOCYTES % (AUTO) 33 % (12-44); MEAN CORPUSCULAR HEMOGLOBIN 30 pg (25-34); MEAN CORPUSCULAR HGB CONC 34 g/dL (32-36); MEAN CORPUSCULAR VOLUME 90 fL (80-99); MEAN PLATELET VOLUME 8.9 fL (9.0-12.2); MONOCYTES # (AUTO) 0.7 10^3/uL (0.0-1.0); MONOCYTES % (AUTO) 6 % (0-12); NEUTROPHILS # (AUTO) 6.6 10^3/uL (1.8-7.8); NEUTROPHILS % (AUTO) 58 % (42-75); PLATELET COUNT 245 10^3/uL (130-400); WHITE BLOOD COUNT 11.3 10^3/uL (4.3-11.0)
[2022-03-21 08:22] LABS: AMORPHOUS SEDIMENT,UR RARE AMOR URATES /LPF; BACTERIA,URINE NEGATIVE /HPF; SQUAMOUS EPITHELIAL CELL,UR 0-2 /HPF; WBC,URINE 0-2 /HPF
[2022-03-21] MEDS ORDERED: NS IV 1000 ML 1,000 ML IV SCH (08:30)
[2022-03-21 08:39] LABS: ALBUMIN 4.6 GM/DL (3.2-4.5)
[2022-03-21 08:40] LABS: CHLORIDE 102 MMOL/L (98-107); POTASSIUM 3.9 MMOL/L (3.6-5.0); SODIUM 142 MMOL/L (135-145)
[2022-03-21 08:41] LABS: CALCIUM 10.3 MG/DL (8.5-10.1)
[2022-03-21 08:42] LABS: GLUCOSE 255 MG/DL (70-105); TOTAL PROTEIN 7.9 GM/DL (6.4-8.2)
[2022-03-21 08:43] LABS: CARBON DIOXIDE 23 MMOL/L (21-32)
[2022-03-21 08:44] LABS: BILIRUBIN,TOTAL 0.5 MG/DL (0.1-1.0)
[2022-03-21 08:45] LABS: ALKALINE PHOSPHATASE 170 U/L (40-136)
[2022-03-21 08:46] LABS: CREATININE SERUM 1.72 MG/DL (0.60-1.30); GFR ESTIMATED 31
[2022-03-21 08:47] LABS: BUN/CREATININE RATIO 18
[2022-03-21 08:49] LABS: ALANINE AMINOTRANSFERASE 25 U/L (0-55); MAGNESIUM 1.8 MG/DL (1.6-2.4)
[2022-03-21] MEDS ORDERED: LACTATED RINGERS 1,000 ML IV ONE (09:15)
--- NOTE | 2022-03-21 09:19 | Diagnostic Imaging Report ---
Indication: Altered mental status with bibasilar crackles. Time of Exam: 9:17 AM No prior studies are available for comparison. Findings: The heart size is normal. The pulmonary vascularity is unremarkable. The lungs are clear. No infiltrate, effusion or pneumothorax is detected. Impression: No acute cardiopulmonary process is detected. Dictated by: Dictated on workstation # [id number]
--- NOTE | 2022-03-21 09:40 | ED General ---
General Chief Complaint: Glucose Problems Stated Complaint: HIGH BLOOD SUGAR, CONFUSION Nursing Triage Note: PT AMB TO [facility] 5 WITH HER DAUGHTER. PT WAS A/O X3. PTS DAUGHTER STATED THAT HER MOTHER HAS BEEN HAVING CONFUSION AND HAD A BLOOD SUGAR CHECK AT 0100 THIS MORNING THAT READED IN THE 500S AND GAVE A DOSE OF INSULIN. PTS DAUGTHER STATED THAT SHE GAVE HER MORNING DOSE OF INSULIN AT 0530 AND THEN FOUND HER MOTHER AT 0630 WITH HER INSULIN IN HER HAND. PTS DAUGHTER STATED THAT SHE WAS CONCERNED THAT HER MOTHER TOOK ANOTHER DOSE OF INSULIN. BLOOD SUGAR WAS TAKEN AND READ 256 AT 0758. PT IS LAYING IN BED WITH BOTH SIDERAILS UP AND CALL LIGHT IN REACH. Source of Information: Patient, Family Exam Limitations: Other (Dementia) History of Present Illness Date Seen by Provider: Mar 21, 2022 Time Seen by Provider: 07:57 Initial Comments This 72-year-old woman is brought to the emergency room by her daughter with concerns about hyperglycemia and change in behavior. In the night her blood sugar was 585 followed by 355. She had a change in behavior over the last couple of days which includes hallucinations. Patient acknowledges the hallucinations. Blood sugar this morning was 311 at home. Daughter is concerned about patient's ability to manage her medications. She seems to be slipping more progressively with her dementia recently. Daughter works during the day and is unable to be home to monitor medication administration. Rochelle Brown is her primary care provider. Recently started Jardiance. Allergies and Home Medications Allergies Coded Allergies: No Known Drug Allergies (Unverified , 12/08/17) Patient Home Medication List Home Medication List Reviewed: Yes Donepezil HCl (Donepezil HCl) 5 Mg Tablet, 5 MG PO DAILY, (Reported) Entered as Reported by: BHARAT RUSS on 12/08/17 1128 Eszopiclone (Eszopiclone) 3 Mg Tablet, 3 MG PO HS, (Reported) Entered as Reported by: BHARAT RUSS on 12/08/17 1129 Hydrocodone Bit/Acetaminophen (Lortab 5 Mg Tablet) 1 Tab Tab, 1 EACH PO Q4H PRN for PAIN-MODERATE Prescribed by: REGI FALCON on 05/29/19 1004 Insulin Aspart (Novolog) 100 Unit/1 Ml Susp, 1,000 UNIT SQ SSI, (Reported) Entered as Reported by: HBARAT RUSS on 12/08/17 1128 Insulin Degludec (Tresiba Flextouch U-100) 100 Unit/1 Ml Insuln.pen, 20 UNIT SQ DAILY, (Reported) Entered as Reported by: BHARAT RUSS on 12/08/17 112 Lamotrigine (Lamotrigine) 100 Mg Tablet, 100 MG PO BID, (Reported) Entered as Reported by: BHARAT RUSS on 12/08/17 112 Metformin HCl (Metformin HCl) 500 Mg Tablet, 500 MG PO DAILY, (Reported) Entered as Reported by: BHARAT RUSS on 12/08/17 112 Multivitamin (Daily Multiple Vitamin) 1 Each Tablet, 1 EACH PO DAILY, (Reported) Entered as Reported by: BHARAT RUSS on 12/08/171127 Ondansetron (Ondansetron Odt) 4 Mg Tab.rapdis, 4 MG PO Q4H Prescribed by: REGI FALCON on 01/20/20 0428 Vilazodone Hydrochloride (Viibryd) 40 Mg Tablet, 40 MG PO DAILY, (Reported) Entered as Reported by: BHARAT RUSS on 12/08/171127 Review of Systems Review of Systems Constitutional: no symptoms reported EENTM: no symptoms reported Respiratory: no symptoms reported Cardiovascular: no symptoms reported Gastrointestinal: no symptoms reported Genitourinary: no symptoms reported : No Musculoskeletal: no symptoms reported Skin: no symptoms reported Psychiatric/Neurological: See HPI Hematologic/Lymphatic: No Symptoms Reported Immunological/Allergic: no symptoms reported Past Szepobw-Dsjsxf-Zkpncz Hx Patient Social History Tobacco Use?: No Use of E-Cig and/or Vaping Shashank: Never a User Substance use?: No Alcohol Use?: No Pt feels they are or have been: No Immunizations Up To Date Tetanus Booster (TDap): Unknown Influenza Vaccine Up-to-Date: Yes; Up-to-Date COVID19 Vaccine Level Vial Inspector And Tester: AV Seasonal Allergies Seasonal Allergies: No Past Medical History Surgeries: Yes (BILAT CATARACTS; COLONOSCOPY WITH POLYPECTOMY 10/2017;L CARPAL TUNNEL;D&C; ) Eye Surgery, Orthopedic Respiratory: Yes Pneumonia Currently Using CPAP: No Currently Using BIPAP: No Cardiac: Yes High Cholesterol, Hypertension Neurological: Yes Dementia Reproductive Disorders: Yes (D&C 2016 FOR VAGINAL BLEEDING/SPOTTING) COURT USHER History: Menopausal Sexually Transmitted Disease: No HIV/AIDS: No Genitourinary: Yes UTI-Chronic Gastrointestinal: Yes (COLONOSCOPY 10/2017-POLYPS AND DIVERTICULAR DISEASE NOTED) Diverticulosis, Polyps Musculoskeletal: Yes (RIGHT TIBIAL PLATEAU FX 05/2019;LEFT CARPAL TUNNEL) Arthritis, Fractures Endocrine: Yes Diabetes, Insulin dep HEENT: Yes (BILATERAL CATARACT SURGERY ; TEETH REMOVED) Cataract Loss of Vision: Bilateral Hearing Impairment: Hard of Hearing, Bilateral Hearing Aide Cancer: No Psychosocial: Yes Anxiety, Depression Integumentary: No Blood Disorders: No Adverse Reaction/Blood Tranf: No (N/A) Family Medical History Arthritis 19 MOTHER BREAST CA GRANDMOTHER BREAST CA GRANDMOTHER Diabetes mellitus 19 FATHER Parkinson's disease 19 MOTHER Physical Exam Vital Signs Vital Signs - First Documented 03/21/22 07:54 Temp 36.4 Pulse 100 Resp 14 B/P (MAP) 141/80 (100) Pulse Ox 98 O2 Delivery Room Air Capillary Refill : Less Than 3 Seconds Height, Weight, BMI Height: 5'0.00" Weight: 165lbs. 0.0oz. [id number]; 30.00 BMI Method: General Appearance: No Apparent Distress, WD/WN HEENT: PERRL/EOMI, Normal ENT Inspection Neck: Normal Inspection Respiratory: Normal Breath Sounds, No Accessory Muscle Use, Crackles (Bilateral bases) Cardiovascular: Regular Rate, Rhythm, No Edema, No Murmur Gastrointestinal: Normal Bowel Sounds, Non Tender, Soft Extremity: Normal Inspection, Non Tender, No Pedal Edema Neurologic/Psychiatric: Alert, No Motor/Sensory Deficits, Normal Mood/Affect, carbonizer II-XII Norm as Tested, Other (Somewhat disoriented. Hallucinates at times. Has insight into the hallucinations.) Skin: Normal Color, Warm/Dry Progress/Results/Core Measures Suspected Sepsis SIRS Temperature: Pulse: 100 Respiratory Rate: 14 Laboratory Tests 03/21/22 08:12: White Blood Count 11.3H Blood Pressure 141 /80 Mean: 100 Laboratory Tests 03/21/22 08:12: Creatinine 1.72H, Platelet Count 245, Total Bilirubin 0.5 Results/Orders Lab Results Laboratory Tests Test 03/21/22 08:00 03/21/22 08:12 Range/Units Urine Color YELLOW Urine Clarity CLEAR Urine pH 5.5 5-9 Urine Specific [place] 1.015 L 1.016-1.022 Urine Protein NEGATIVE NEGATIVE Urine Glucose (UA) 3+ H NEGATIVE Urine Ketones NEGATIVE NEGATIVE Urine Nitrite NEGATIVE NEGATIVE Urine Bilirubin NEGATIVE NEGATIVE Urine Urobilinogen 0.2 < = 1.0 MG/DL Urine Leukocyte Esterase NEGATIVE NEGATIVE Urine RBC (Auto) NEGATIVE NEGATIVE Urine RBC NONE /HPF Urine WBC 0-2 /HPF Urine Squamous Epithelial Cells 0-2 /HPF Urine Crystals PRESENT H /LPF Urine Amorphous Sediment RARE LUIS URATES H /LPF Urine Bacteria NEGATIVE /HPF Urine Casts NONE /LPF Urine Mucus NEGATIVE /LPF Urine Culture Indicated NO White Blood Count 11.3 H 4.3-11.0 10^3/uL Red Blood Count 4.67 3.80-5.11 10^6/uL Hemoglobin 14.1 11.5-16.0 g/dL Hematocrit 42 35-52 % Mean Corpuscular Volume 90 80-99 fL Mean Corpuscular Hemoglobin 30 25-34 pg Mean Corpuscular Hemoglobin Concent 34 32-36 g/dL Red Cell Distribution Width 12.5 10.0-14.5 % Platelet Count 245 130-400 10^3/uL Mean Platelet Volume 8.9 L 9.0-12.2 fL Immature Granulocyte % (Auto) 0 % Neutrophils (%) (Auto) 58 42-75 % Lymphocytes (%) (Auto) 33 12-44 % Monocytes (%) (Auto) 6 0-12 % Eosinophils (%) (Auto) 2 0-10 % Basophils (%) (Auto) 0 0-10 % Neutrophils # (Auto) 6.6 1.8-7.8 10^3/uL Lymphocytes # (Auto) 3.8 1.0-4.0 10^3/uL Monocytes # (Auto) 0.7 0.0-1.0 10^3/uL Eosinophils # (Auto) 0.2 0.0-0.3 10^3/uL Basophils # (Auto) 0.0 0.0-0.1 10^3/uL Immature Granulocyte # (Auto) 0.1 0.0-0.1 10^3/uL Sodium Level 142 135-145 MMOL/L Potassium Level 3.9 3.6-5.0 MMOL/L Chloride Level 102 98-107 MMOL/L Carbon Dioxide Level 23 21-32 MMOL/L Anion Gap 17 H 5-14 MMOL/L Blood Urea Nitrogen 31 H 7-18 MG/DL Creatinine 1.72 H 0.60-1.30 MG/DL Estimat Glomerular Filtration Rate 31 BUN/Creatinine Ratio 18 Glucose Level 255 H 70-105 MG/DL Calcium Level 10.3 H 8.5-10.1 MG/DL Corrected Calcium 8.5-10.1 MG/DL Magnesium Level 1.8 1.6-2.4 MG/DL Total Bilirubin 0.5 0.1-1.0 MG/DL Aspartate Amino Transf (AST/SGOT) 19 5-34 U/L Alanine Aminotransferase (ALT/SGPT) 25 0-55 U/L Alkaline Phosphatase 170 H 40-136 U/L Total Protein 7.9 6.4-8.2 GM/DL Albumin 4.6 H 3.2-4.5 GM/DL TSH [place] Testing 2.45 0.35-4.94 UIU/ML My Orders Orders - TEMO BATRES MD Cbc With Automated Diff (03/21/22 07:57) Comprehensive Metabolic Panel (03/21/22 07:57) Magnesium (03/21/22 07:57) Ua Culture If Indicated (03/21/22 07:57) Accucheck Stat ONCE (03/21/22 07:57) Ed Iv/Invasive Line Start (03/21/22 07:57) Ns Iv 1000 Ml (Sodium Chloride 0.9%) (03/21/22 08:30) Thyroid Analyzer (03/21/22 08:19) Chest Pa/Lat (2 View) (03/21/22 09:06) Lactated Ringers (Lr 1000 Ml Iv Solution (03/21/22 09:15) Medications Given in ED Current Medications Medications Dose Ordered Sig/Cherie Route Start Time Stop Time Status Last Admin Dose Admin Lactated Ringer's 1,000 ml @ 0 mls/hr Q0M ONCE IV 03/21/22 09:15 03/21/22 09:16 DC 03/21/22 09:36 1,000 MLS/HR Vital Signs/I&O 03/21/22 03/21/22 07:54 10:18 Temp 36.4 36.8 Pulse 100 86 Resp 14 14 B/P (MAP) 141/80 (100) 118/99 Pulse Ox 98 99 O2 Delivery Room Air Room Air Capillary Refill : Less Than 3 Seconds Blood Pressure Mean: 100 Point of Care Testing Finger Stick Blood Glucose: 256 Blood Glucose Action Taken: rn notified Progress Note : Progress Note Blood sugar had improved to 255. Patient was found to have elevated creatinine and 2 L of IVF were administered to boost her hydration. See discharge instructions for further discussion. Diagnostic Imaging Diagonstic Imaging: Xray Plain Films/CT/US/NM/MRI: chest Comments NAME: [facility] REC#: [id number] PT STATUS: DEP ER : [id number] PHYSICIAN: TEMO BATRES MD ADMIT DATE: 03/21/22/ER Signed Date of Exam:03/21/22 CHEST PA/LAT (2 VIEW) Indication: Altered mental status with bibasilar crackles. Time of Exam: 9:17 AM No prior studies are available for comparison. Findings: The heart size is normal. The pulmonary vascularity is unremarkable. The lungs are clear. No infiltrate, effusion or pneumothorax is detected. Impression: No acute cardiopulmonary process is detected. Dictated by: Dictated on workstation # [id number] Dict: 03/21/2217 Trans: 03/21/22 1551 [facility] [id number] Interpreted by: KATIE COHEN MD Electronically signed by: KATIE COHEN MD 03/21/22 1551 Departure Impression Primary Impression: Hyperglycemia Additional Impressions: Acute kidney injury Dementia with behavioral disturbance Qualified Codes: F03.91 - Unspecified dementia with behavioral disturbance Diabetes mellitus type 2 with complications Sleeping excessive Disposition: 01 HOME, SELF-CARE Condition: Improved Departure-Patient Inst. Decision time for Depature: 09:35 Referrals: [facility] (PCP) Primary Care Physician ROCHELLE MALLORY APRN (Family) Primary Care Physician Patient Instructions: Treatment for Type 2 Diabetes Add. Discharge Instructions: Follow-up with your primary care provider as soon as possible. Try to monitor blood sugars closely with at least fasting blood sugars in the morning and at least 1 blood sugar 2 hours after a meal each day. Bring these blood sugar logs to your follow-up appointment. Please work with your primary care provider to develop a diabetes management plan which may include predrawn or predialed insulin doses each day in addition to medications lined out in a pillbox. Discuss medication adjustments with your primary care provider to help minimize drowsiness while maximizing prevention of worsening dementia and diabetes. Encourage plenty of sugar-free clear liquids. Return to the ER if there are worsening medical problems despite following these instructions. All discharge instructions reviewed with patient and/or family. Voiced understanding. Copy Copies To 1: [facility]TEMO ROBLES MD Mar 21, 2022 09:40
[2022-03-21 10:18] VITALS: BP 118/99
== END 2022-03-21 10:18 | disposition home or self-care (01) ==
LOC: EDUNIT# 07:49 → ER 07:52
DX: E11.65 Type 2 diabetes mellitus with hyperglycemia (principal); F03.91 Unspecified dementia, unspecified severity, with behavioral disturbance; N17.9 Acute kidney failure, unspecified; G47.10 Hypersomnia, unspecified; Z79.4 Long term (current) use of insulin
CPT/HCPCS: 36415; 71046; 80053; 81000; 83735; 84443; 85025